=== PATIENT | female | born 1985 | race Caucasian/White ===

== ENCOUNTER 2019-08-22 15:04 | Outpatient (CLI) | payer MEDICAID, SELFPAY ==
--- NOTE | 2019-08-22 14:30 | DI.RAD_ITS ---
EXAM: XR KNEE LT 3V AP,LAT,SHELDON CLINICAL HISTORY: left knee pain. TECHNIQUE: 2D digital imaging was performed. COMPARISON: No exams were available for comparison FINDINGS: There are findings of a prior ACL repair. The articular surfaces are well maintained. The bones are normally mineralized and intact. The soft tissues are unremarkable. IMPRESSION: No acute abnormality. DATA REPOSITORY: RADIATION DOSE DELIVERED:
== END 2019-08-22 15:24 ==
PROVIDERS: PCP Nurse Practitioner; Referring Provider Nurse Practitioner; Visit Provider Physician Assistant Surgical
DX: M25.562 Pain in left knee (principal)
CPT/HCPCS: 73562

== ENCOUNTER 2019-08-25 01:18 | Outpatient (CLI) | payer MEDICAID, SELFPAY ==
--- NOTE | 2019-08-25 10:45 | DI.MRI_ITS ---
EXAM: MR LOWER JOINT LT WO CLINICAL HISTORY: LT KNEE PAIN, INTERNAL DERANGEMENT, M23.92. TECHNIQUE: Multiplanar multisequence MRI was performed. COMPARISON: No exams were available for comparison FINDINGS: MR examination the left knee was performed according to usual protocol. Cruciate ligaments: There is an ACL reconstruction in place. The reconstructed ligament appears inta ct. The posterior cruciate ligament appears normal. Patellofemoral joint and extensor mechanism: The articular cartilage of the patellofemoral joint show s minimal surface irregularity of the patellar and trochlear cartilage without significant cartilage thinning. Quadriceps and patellar tendons are unremarkable. Suprapatellar and infrapatellar fat pad s appear intact. Medial tibiofemoral joint: Slight cartilage thinning femoral and tibial articular cartilage noted. T here is a deficient peripherally displaced medial meniscus consistent with chronic tear or prior meni scectomy, please correlate with history. No significant medial collateral ligament injury. Lateral tibiofemoral joint. Slight cartilage surface irregularity of the tibial articular cartilage, fairly well preserved femoral articular cartilage. Unremarkable appearance of lateral meniscus and attachments. No significant collateral ligament injury. The posterolateral corner structures appear intact. Tendons: The tendon attachments in the region knee appear well. IMPRESSION: Intact reconstructed ACL. Deficient peripherally displaced medial meniscus, chronic tear versus prior meniscectomy. Slight degenerative changes as described above, most notable involving medial tibiofemoral joint. DATA REPOSITORY:
== END 2019-08-25 01:38 ==
PROVIDERS: PCP Nurse Practitioner; Visit Provider Student in an Organized Health Care Education/Training Program
DX: M25.562 Pain in left knee (principal); M23.92 Unspecified internal derangement of left knee; S83.242A Other tear of medial meniscus, current injury, left knee, initial encounter; M17.12 Unilateral primary osteoarthritis, left knee
CPT/HCPCS: 73721

== ENCOUNTER 2019-09-12 11:38 | Outpatient (CLI) | payer MEDICAID, SELFPAY ==
--- NOTE | 2019-09-12 10:30 | DI.RAD_ITS ---
EXAM: XR KNEE LT 1V CLINICAL HISTORY: left knee pain. TECHNIQUE: 2D digital imaging was performed. COMPARISON: CR XR KNEE LT 3V AP,LAT,SHELDON from 08/22/2019 FINDINGS: Single sunrise view is obtained. There is normal alignment of the patella. Soft tissues are unremar kable the bones are normally mineralized and appear intact. Orthopedic hardware is present consisten t with a prior ACL repair. IMPRESSION: No acute abnormality. DATA REPOSITORY: RADIATION DOSE DELIVERED:
== END 2019-09-12 11:58 ==
PROVIDERS: PCP Nurse Practitioner; Referring Provider Nurse Practitioner; Visit Provider Student in an Organized Health Care Education/Training Program
DX: M25.562 Pain in left knee (principal); Z98.890 Other specified postprocedural states
CPT/HCPCS: 73560

== ENCOUNTER 2019-09-14 01:25 | Outpatient (CLI) | payer MEDICAID, SELFPAY ==
[2019-09-14 12:50] LABS: Calculated LDL 94 mg/dL (<100); Cholesterol 201 mg/dL (<200); HDL Cholesterol 90 mg/dL (40-60); Triglyceride 88 mg/dL (<150); Vitamin B12 533 pg/mL (193-986)
== END 2019-09-14 01:45 ==
PROVIDERS: PCP Nurse Practitioner; Visit Provider Nurse Practitioner
DX: R20.0 Anesthesia of skin (principal); R20.2 Paresthesia of skin; Z13.1 Encounter for screening for diabetes mellitus; Z13.6 Encounter for screening for cardiovascular disorders
CPT/HCPCS: 36415; 80061; 82607; 83036

== ENCOUNTER 2019-09-25 08:36 | Emergency (ER) | payer MEDICAID, SELFPAY ==
[2019-09-25 08:40] VITALS: BP 128/65; PULSE 72; RESP 16; TEMP 37; O2SAT 98
--- NOTE | 2019-09-25 08:51 | W.ED.GENAD ---
Discharge Plan Disposition Patient Disposition: HOME Condition: Stable Discharge Details Chief Complaint: Laceration Clinical Impression: Avulsion of toenail of left foot Primary Care Provider: Dennise Núñez ED Provider: Leta Dorman Home Meds and New Rx's Prescriptions: No Action norgestimate-ethinyl estradiol [Sprintec (28)] 0.25-35 mg-mcg tablet 1 tab PO DAILY Qty: 84 RF: 3 naproxen 500 mg tablet 500 mg PO BID Qty: 30 RF: 0 methocarbamol 500 mg tablet 500 mg PO QID Qty: 30 RF: 1 Discharge Instructions Instructions: Nail Avulsion (ED) Additional Instructions: Follow up with primary care provider in 3-5 days. Return to ED sooner if any worsening or concerns. Increase oral fluids. Please take Tylenol or Ibuprofen with food every 4-6 hours as needed for pain and swelling. Keep wound clean and dry, allow to air dry daily. Keep covered with a bulky dressing if you are out and about to prevent re-injury or infection. Return for any signs of infection including increased redness, swelling, drainage or red streaks up your foot. Referrals: Dennise Núñez, HOME DEPOT REP [Primary Care Provider] - Medical Decision Making 34-year-old female presents to the ER with left second toe toenail avulsion. Patient states that last night she stubbed her toe on a curb and noticed that the toenail has been ripped off. On initial exam toenail is completely gone exposing the nailbed, patient has full range of motion noted to the toe. No obvious deformity swelling or indications of fracture. Prior to arrival patient placed antibiotic ointment on attempted to clean toe. Pain is mild on a scale. No other signs or symptoms no other complaints or injuries. Patient is up-to-date on her tetanus vaccination. At this time I do not feel that imaging is warranted, patient did bring her toenail and then requests as to placed back onto the nail bed. Since this is been approximately 12 to 16 hours at this time we will soak toe and sterile saline and Betadine, place a Xeroform and bulky dressing. Discussed home care and plan of care with patient, verbalized understanding. HPI General Mode of arrival: ambulatory. Date/Time Provider Initiated Documentation: 09/25/19 08:44. Limitations to Documentation: no limitations. Information obtained by: patient. HPI Narrative: 34-year-old female presents to the ER with left second toe toenail avulsion. Patient states that last night she stubbed her toe on a curb and noticed that the toenail has been ripped off. On initial exam toenail is completely gone exposing the nailbed, patient has full range of motion noted to the toe. No obvious deformity swelling or indications of fracture. Prior to arrival patient placed antibiotic ointment on attempted to clean toe. Pain is mild on a scale. No other signs or symptoms no other complaints or injuries. Patient is up-to-date on her tetanus vaccination. Related Data Home Medications Medication Instructions Recorded Confirmed norgestimate 0.25 mg-ethinyl 1 tab PO DAILY #84 tab 07/26/19 09/25/19 estradiol 35 mcg tablet methocarbamol 500 mg tablet 500 mg PO QID #30 tab 09/16/19 09/25/19 naproxen 500 mg tablet 500 mg PO BID #30 tab 09/16/19 09/25/19 Previous Rx's Medication Instructions Recorded norgestimate 0.25 mg-ethinyl 1 tab PO DAILY #84 tab 07/26/19 estradiol 35 mcg tablet methocarbamol 500 mg tablet 500 mg PO QID #30 tab 09/16/19 naproxen 500 mg tablet 500 mg PO BID #30 tab 09/16/19 Allergies Allergy/AdvReac Type Severity Reaction Status Date / Time No Known Allergies Allergy Verified 09/25/19 08:43 General Stated Complaint: Laceration IRMA: 4 Review of Systems Narrative: Constitutional: Negative for weight loss, alert and oriented, well groomed, normal body habitus, appears comfortable. Chest: Denies chest pain, palpitations, irregular rhythm, hypertension. Respiratory: Denies Shortness of breath, cough, hemoptysis. Musculoskeletal: Planing of left second toe pain and toenail avulsion. [facility] Medical History Condyloma acuminata (Acute) Contraception management (Acute) History of HPV infection (Acute) Surgical History History of surgical removal of meniscus of knee (Acute) Family History Mother Alcohol abuse Substance abuse Father Cancer testicular Diabetes Hyperlipidemia Substance abuse Sister No problems noted. Sister Alcohol abuse Substance abuse Social History Smoking/Tobacco Use Status: Never Alcohol Intake: current Alcohol Intake frequency: 0-2 drinks per day Alcohol type: beer Drug use: Occasionally Substance use type: marijuana Caregiver/Support person: No Household members: none Housing: house Communication Needs: None Do you need help understanding health information?: Never Pets and animals: Yes Pets and animals: dog(s) Sexually active: No Current gender identity: female What is your relationship status?: never How often do you talk on the phone with friends or family?: twice per week How often do you get together with friends or relatives?: three or more times per week How often do you attend nondenominational or rastafarian services?: 1-3 times per year Do you belong to any clubs or organized social groups?: yes Panel score (0-1 are the most socially isolated patients): 2 What type of physical activity do you participate in: bicycling and other Details: skiing Duration: 30-45 minutes/day Frequency: 1-2 times per week Chante/Bahai: none Special chante needs: No Seatbelt use: always Helmet use: Yes Helmet use: always Drive intox or ride w/intox tour bus driver/guide: No Do you feel safe at home: Yes Do you feel safe in your relationship?: Yes Exam Narrative Exam Narrative: Constitutional: Alert and oriented x3. Appears stated age. Normal body habitus. Head: Normocephalic, no trauma. Chest: RRR, Normal S1, S2, distal pulses intact. Resp: Lungs clear to auscultation bilaterally, no wheezes, rales, or rhonchi. Musculoskeletal: Normal gait, 5/5 strength to all four extremities. Left second toe has a toenail avulsion, nail bed is exposed bleeding is controlled. No obvious deformity or swelling noted to the toe. Cap refill less than 2 seconds. Distal circulation sensation and movement is intact. Neurologic: Cranial nerves II-XII intact. Alert and oriented x 3. DTR's intact. Hematologic/Lymphatic: No ecchymosis, no lymphadenopathy. Course Vital Signs Vital signs: Vital Signs Temperature 37.0 C 09/25/19 08:40 Pulse 72 07/26/20 08:40 Respiratory Rate 16 09/25/19 08:40 Blood Pressure 128/65 09/25/19 08:40 Pulse Oximetry 98 09/25/19 08:40 Temperature 37.0 C 09/25/19 08:40 Temperature Source Tympanic 09/25/19 08:40 Pulse 72 09/25/19 08:40 Respiratory Rate 16 09/25/19 08:40 Respiratory Effort Non-Labored 09/25/19 08:42 Blood Pressure 128/65 09/25/19 08:40 Blood Pressure Position Sitting 09/25/19 08:40 Pulse Oximetry 98 09/25/19 08:40 Oxygen Delivery Method Room Air 09/25/19 08:40 Oxygen Flow Rate 0 09/25/19 08:40 Pain Level 2 09/25/19 08:40
== END 2019-09-25 09:22 | disposition home or self-care (01) ==
PROVIDERS: Emergency Provider Registered Nurse Emergency; PCP Nurse Practitioner
DX: S91.215A Laceration without foreign body of left lesser toe(s) with damage to nail, initial encounter (principal); W22.09XA Striking against other stationary object, initial encounter
CPT/HCPCS: 99282; 99283

== ENCOUNTER 2019-12-27 10:24 | Outpatient (REF) | payer MEDICAID, SELFPAY ==
--- NOTE | 2019-12-27 09:50 | PAPFT_PTH ---
PATIENT: Claire Eubanks LOC: [facility] U#:[id number] AGE/SX: 34/F ROOM: RE12/27/[address]: Gudelia Fonseca NP : 1985 BED: DIS: 12/27/2019 SPEC #: [id number] RECD: 12/27/19 12:57 STATUS: CASA ISABEL #: [id number] DOMONIQUE: 12/27/19 09:[address]: Gudelia Fonseca NP DEPT: [facility] Cytology RECD BY: Maricel Bell ENTERED: 12/27/19 12:58 SP TYPE: PAPFT OTHR DR: Dennise Núñez, PhD [employer] Tissues: 1 - CX/ENDOCX FOR PAP SMEARS Procedures: PAP THIN PREP/UVM Screening HPV DNA PROBE Comments: [id number] ([place]) ([place]DIA/GC)
[2020-01-18 16:26] LABS: Chlamydia Result Negative (Negative); GC Result Negative (Negative)
== END 2019-12-27 10:44 ==
LOC: LBN 10:24
PROVIDERS: PCP Nurse Practitioner; Visit Provider Nurse Practitioner Women's Health
DX: Z12.4 Encounter for screening for malignant neoplasm of cervix (principal); Z11.3 Encounter for screening for infections with a predominantly sexual mode of transmission; Z11.51 Encounter for screening for human papillomavirus (HPV); R87.610 Atypical squamous cells of undetermined significance on cytologic smear of cervix (ASC-US)
CPT/HCPCS: 87491; 87591; 88142; 87624

== ENCOUNTER 2020-01-10 07:42 | Outpatient (CLI) | payer MEDICAID, SELFPAY ==
[2020-01-11 12:33] LABS: SARS-CoV-2 RNA Not Detected (NotDetected); SARS-CoV-2 RNA Source Nasal/Nares
== END 2020-01-10 08:02 ==
PROVIDERS: PCP Nurse Practitioner; Visit Provider Student in an Organized Health Care Education/Training Program
DX: Z01.818 Encounter for other preprocedural examination (principal); M94.262 Chondromalacia, left knee
CPT/HCPCS: U0003

== ENCOUNTER 2020-01-30 02:40 | Outpatient (CLI) | payer MEDICAID, SELFPAY ==
[2020-01-31 16:51] LABS: COVID-19 RT-PCR UVMMC Result Negative (Negative)
== END 2020-01-30 03:00 ==
PROVIDERS: PCP Nurse Practitioner; Visit Provider Student in an Organized Health Care Education/Training Program
DX: Z11.59 Encounter for screening for other viral diseases (principal); Z01.818 Encounter for other preprocedural examination
CPT/HCPCS: U0003

== ENCOUNTER 2020-02-03 10:08 | Day surgery (SDC) | payer MEDICAID, SELFPAY ==
[2020-02-03 10:32] VITALS: BP 135/70; PULSE 53; RESP 16; TEMP 36.3; O2SAT 100
[2020-02-03] MEDS: Lactated Ringers 1,000 ML 100 ML IV (11:03)
[2020-02-03] MEDS: Bupivacaine 0.25% Pres-Free 30 ML VIAL (12:40)
[2020-02-03] MEDS: EPINEPHrine 1 MG/ML AMP pres-free (12:41)
--- NOTE | 2020-02-03 13:28 | PDOC.DSDIS_ITS ---
Discharge Plan Disposition Patient Disposition: HOME Condition: Stable Discharge Details Reason For Visit: Left knee diagnostic arthroscopy Attending Provider: Golden Chilel Primary Care Provider: Dennise Núñez Home Meds and New Rx's Prescriptions: New aspirin 81 mg tablet,delayed release (DR/EC) 81 mg PO DAILY 14 Days Qty: 14 RF: 0 naproxen 250 mg tablet 250 - 500 mg PO BID PRN (Reason: Moderate pain or swelling) Qty: 60 RF: 0 tramadol 50 mg Tablet 50 mg PO Q8H PRN PRN (Reason: severe pain) Qty: 5 RF: 0 Discontinued naproxen 500 mg tablet 500 mg PO BID Qty: 30 RF: 0 methocarbamol 500 mg tablet 500 mg PO QID Qty: 30 RF: 1 Discharge Instructions Additional Instructions: Surgery: Left knee diagnostic arthroscopy with minimal partial medial meniscectomy, small lateral tibial plateau chondroplasty, and limited s ynovectomy Activity: Advance to weightbearing as tolerated. Progress to full range of motion over the next few days. Avoid high-impact activities until completely comfortable. A physical therapy prescription will be provided separately in the office at follow-up if needed. Prescriptions: Aspirin 81 mg take 1 daily to prevent a blood clot for 2 weeks Naproxen 250 mg take 1-2 every 12 hours with a meal as needed for moderate pain Tramadol 50 mg take 1 every 8 hours as needed for severe pain You may use foop-nui-oneddph Tylenol (acetaminophen) as needed for mild pain. These pain medications may be taken all at once or in different combinations as needed. Also, recommend Colace (docusate) as a stool softener as surgery and pain medicine cause constipation. Dressings: Leave dressing in place for 2-3 days. May adjust, loosen, or rewrap Enrrique wraps as needed. After dressing removal, leave open to air or cover incisions with Band-Aids. May shower after 5 days. Follow-up: 10-[address] Chilel Let us know right away if you develop any redness, drainage, fevers, chest pain, or trouble breathing. Do not drink alcohol or drive for at least 24 hours after anesthesia. Please call the office during business hours with any questions or concerns. 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
--- NOTE | 2020-02-03 13:42 | ROE_ITS ---
Date of service: 02/03/20 Time of Service: 13:29 Operative Note Operative Note DATE OF PROCEDURE: 02/03/20 PRE-OP DIAGNOSIS: 1. Left knee medial meniscus deficiency 2. Status post ACL reconstruction 3. Chondromalacia 4. Synovitis POST-OP DIAGNOSIS: same 1. Left knee medial meniscus deficiency and minimal fraying/tearing of the body: Status post nearly total medial meniscectomy 2. Status post ACL reconstruction: Intact although mildly lax and diminutive 3. Chondromalacia: No significant cartilage defect medial compartment. Mild grade 1-2 change patellofemoral compartment, minimal grade 1 changes medial tibial plateau, and 3 x 5 mm fraying loose edge cartilage flap just lateral to lateral tibial spine on lateral tibial plateau 4. Synovitis: Minimal anterior fat pad synovitis. Small lateral gutter plica. PROCEDURE: 1. Left knee diagnostic arthroscopy for potential staged medial meniscal allograft transplant 2. Limited synovectomy of lateral plical band 3. Minimal partial medial meniscectomy of very limited fraying at the medial meniscus body 4. Chondroplasty of the small lateral tibial plateau cartilage lesion SURGEON: Golden Chilel TAPE RECORDING MACHINE OPERATOR: Daryl Raygoza ANESTHESIA: local and spinal ESTIMATED BLOOD LOSS: 3 PATHOLOGY: none sent TOURNIQUET TIME: 0 COMPLICATIONS: None Patient was transported to: same day Patient's condition: stable Implants: None Indications: Please see complete medical record for details. Findings: Largely intact medial compartment articular cartilage status post prior near?total medial meniscectomy. Intact ACL arthroscopically and negative Marilyn and negative pivot shift under exam under anesthesia. Procedure Description: In the operating room, spinal anesthesia was induced. The patient was positioned supine on the operating room table. All bony prominences were well-padded. Preoperative antibiotics were administered. The left knee was prepped and draped in the usual sterile fashion. The correct patient, procedure, and side of the procedure were all verified prior to incision. With the patient awake and observing, a complete diagnostic arthroscopy was performed. The patient's prior anteromedial anterolateral portals were preinjected with 10 cc of 0.25% bupivacaine containing epinephrine and then utilized reopening the skin sharply and then bluntly into the joint. Significant relevant findings documented above and discussed with the patient. There was a very minimal amount of medial meniscus remnant still present. The medial compartment cartilage surfaces were remarkably intact throughout except for the medialmost aspect of the distal medial femoral condyle with a grade 1 to 5 x 8 lesion. There is a mild amount of erythema and fraying of the medial meniscus body that is easily removed with a shaver. Minimal anterior fat pad was present and did not appear pathologic. There was a small plical band lateral gutter that was also easily removed with a shaver after switching viewing and working portals. The lateral compartment showed intact lateral meniscus. There was a small frayed nearly free edge flap of cartilage just lateral to lateral tibial plateau that was treated with a shaver to stable cartilage border performing a limited chondroplasty. ACL was inspected in flexion and extension and although diminutive and possibly slightly lax intact throughout its course from the lateral femoral condyle in the proximal tibia. Under direct visualization a spinal needle was inserted anterolaterally into the suprapatellar pouch. The knee was flushed with the irrigation pump and then drained of all arthroscopic fluid. The anteromedial anterolateral portals were closed with 3-0 Monocryl in a buried fashion. Postoperative pain injection containing 20 cc of 0.25% bupivacaine containing epinephrine and 4 mg of morphine was injected into the knee joint. Mastisol followed by Steri-Strips Xeroform and dry 4 x 4 gauze applied over the anterior knee. The patient was awake and tolerated the procedure under spinal without complication and was transferred back to day surgery in a stable condition.
[2020-02-03 13:48] VITALS: BP 107/66; PULSE 53; RESP 16; TEMP 36.2; O2SAT 98
== END 2020-02-03 14:50 | disposition home or self-care (01) ==
PROVIDERS: PCP Nurse Practitioner; Visit Provider Student in an Organized Health Care Education/Training Program
PROC: (CPT 29870; principal; 2020-02-03 11:00)
DX: M23.332 Other meniscus derangements, other medial meniscus, left knee (principal); M94.262 Chondromalacia, left knee; M65.862 Other synovitis and tenosynovitis, left lower leg; M67.52 Plica syndrome, left knee; Z98.890 Other specified postprocedural states; M23.8X2 Other internal derangements of left knee; X58.XXXS Exposure to other specified factors, sequela
CPT/HCPCS: 29881; E0114; J0171; J1100; J1885; J2001; J2250; J2405

== ENCOUNTER 2020-02-15 02:23 | Outpatient (RCR) | payer MEDICAID, SELFPAY ==
--- NOTE | 2020-02-15 15:00 | HOLTER_ITS ---
APPROVED REPORT Exam Type: HOLTER MONITOR APPLICATION Reason for Test: ireeg heartbeat, bradycardia Patient Location: O Conclusion This is a 48-hour Holter monitor ordered for indication of bradycardia. ???The patient was in normal sinus rhythm for the majority of the recording with an average heart rat e of 81 bpm. ???There was one episode of supraventricular tachycardia lasting 10 beats. ???There were 2 brief episodes of ventricular tachycardia with the longest lasting 4 beats. ???There were occasional (4%) PVCs. ???There were no episodes of atrial fibrillation, no pauses greater than 3 seconds and no evidence of high degree heart block. ???Single patient diary event was associated with PVCs.
== END 2020-03-01 23:59 | disposition home or self-care (01) ==
LOC: RT 02:23
PROVIDERS: PCP Nurse Practitioner; Visit Provider Nurse Practitioner
DX: I49.8 Other specified cardiac arrhythmias (principal); R00.1 Bradycardia, unspecified; I47.1 Supraventricular tachycardia; I49.3 Ventricular premature depolarization
CPT/HCPCS: 93225; 93226

== ENCOUNTER 2020-02-15 15:40 | Outpatient (CLI) | payer MEDICAID, SELFPAY ==
--- NOTE | 2020-02-15 15:15 | DI.RAD_ITS ---
EXAM: XR KNEE LT 2V AP,LAT CLINICAL HISTORY: F/u. TECHNIQUE: 2D digital imaging was performed. COMPARISON: CR XR KNEE LT 1V from 09/12/2019 FINDINGS: There has been ACL surgery. There is no evidence of fracture. No obvious degenerative changes. The re is a joint effusion noted. An no osteophytes. No osseous lesions. Small benign bone island is n oted in the intercondylar region. No lytic osseous lesions. No radiographic evidence of osteomyelit is. Signature IMPRESSION: DATA REPOSITORY: RADIATION DOSE DELIVERED:
== END 2020-02-15 16:00 ==
PROVIDERS: PCP Nurse Practitioner; Referring Provider Nurse Practitioner; Visit Provider Student in an Organized Health Care Education/Training Program
DX: Z98.890 Other specified postprocedural states (principal)
CPT/HCPCS: 73560

== ENCOUNTER 2020-02-21 14:19 | Outpatient (REF) | payer MEDICAID, SELFPAY ==
--- NOTE | 2020-02-21 13:15 | CER_PTH ---
PATIENT: Claire Eubanks LOC: [facility] U#:[id number] AGE/SX: 34/F ROOM: RE02/21/[address]: Ana Willams DO : 1985 BED: DIS: 02/21/2020 SPEC #: [id number] RECD: 02/21/20 17:20 STATUS: CASA REQ #: [id number] DOMONIQUE: 02/21/20 13:[address]: Ana Willams DEPT: Surgical Specimen RECD BY: Maricel Bell ENTERED: 02/21/20 17:21 SP TYPE: CER OTHR DR: Dennise Núñez, PhD [employer]MENT [employer]ER Tissues: 1 - CERVICAL BIOPSY 2 - ENDOCERVICAL BX/CURRETTE Procedures: GROSS AND MICRO LEVEL 4 Comments: [id number]
== END 2020-02-21 14:39 ==
LOC: LBN 14:19
PROVIDERS: PCP Nurse Practitioner; Visit Provider Obstetrics & Gynecology
DX: N72 Inflammatory disease of cervix uteri (principal); N88.8 Other specified noninflammatory disorders of cervix uteri; R87.610 Atypical squamous cells of undetermined significance on cytologic smear of cervix (ASC-US)
CPT/HCPCS: 88305

== ENCOUNTER 2020-03-26 04:36 | Outpatient (CLI) | payer MEDICAID, SELFPAY ==
[2020-03-27 14:35] LABS: COVID-19 RT-PCR UVMMC Result Negative (Negative)
== END 2020-03-26 04:56 ==
PROVIDERS: PCP Nurse Practitioner; Visit Provider Family Medicine
DX: Z11.52 Encounter for screening for COVID-19 (principal)
CPT/HCPCS: U0003

== ENCOUNTER 2020-03-29 01:06 | Outpatient (CLI) | payer MEDICAID, SELFPAY ==
--- NOTE | 2020-03-29 08:00 | ETT_ITS ---
APPROVED REPORT Exam: Exercise Treadmill Patient Location: Out-Patient Room/Bed: Stress Nurse: Citlaly Hinson RN Ordering Provider:HE MILTON, Contact Number: [phone] BMI: 22.14 Baseline Rhythm: Sinus Rhythm Comment: bigeminy, trigeminy Indications: bradycardia Medical History Medical History: bradycardia, PVCs Cardiac Medications: None Allergies: Penicillin Cardiac Risk Factors: Family hx Previous Cardiac Procedures: None Pretest Chest Pain Characteristics: None Exercise History: Physically active Physical Disabilities: None Lung Sounds: Clear to auscultation Heart Sounds: Regular Stress Test Details Test: Exercise stress testing was performed using a Luke protocol. Rest Stress HR Resting HR Supine: 90 bpm Max Heart Rate (APMHR): 184 bpm Resting HR Standin bpm Target HR (85% APMHR): 156 bpm Max HR Achieved: 190 bpm % of APMHR: 103 Recovery HR: 98 bpm HR response to stress: Normal HR response to stress BP Resting BP Supine: 116/70 mmHg Resting BP Standin/74 mmHg Max BP: 156/62 mmHg Recovery BP: 120/68 mmHg BP response to stress: Normal blood pressure response to stress. ECG Resting ECG: Sinus Rhythm Ectopy: bigeminy, trigeminy Stress ECG: Sinus Tachycardia ST Change: No significant ST segment changes noted Arrhythmia: episodes of frequent PVCs, bigeminy, trigeminy, couplet Recovery ECG: Sinus Rhythm Recovery ST Change: No significant ST segment changes noted Recovery Arrhythmia: frequent PVCs, bigeminy, couplet Clinical Reason for Termination: Fatigue Stress Symptoms: General Fatigue Exercise duration: 16 min36 sec Highest Stage Reached: Stage 6: 5.5 mph at 20% grade. Exercise capacity: 16.55 METs Mercedes Treadmill Score: 14 Rate Pressure Product: 39082 Stress ECG Conclusion 1. The patient exercised for 17 minutes (17 METS). Exercise was stopped due to fatigue. 2. The patient had frequent PVCs at baseline as well as during exercise and through recovery. The PV Cs appear monomorphic in nature. 3. There were no ST changes suggestive of ischemia. 4. The Mercedes Score (14) estimates an annual cardiovascular mortality of 0% and a five year survival of 96%. Using the Mercedes Score there is a low probability of any angiographic coronary disease. Mercedes Treadmill Score is 14 which is Low risk. Stress Test Summary STAGE Time (mins) Speed (mph) Grade (%) HR BP SYMPTOMS METS Supine 90 116/70 Standing 81 118/74 1 3 1.7 10 102 120/70 4.6 2 6 2.5 12 110 126/68 7 3 9 3.4 14 132 130/70 10.2 4 12 4.2 16 150 12.9 5 15 5.0 18 169 17.2 1 min recovery 118 156/62 3 min recovery 104 144/66 6 min recovery 98 120/68 stage 6 185
--- NOTE | 2020-03-29 08:33 | DI.US_ITS ---
APPROVED REPORT EXAM: Comprehensive 2D, Doppler, and color-flow Echocardiogram Patient Location: Out-Patient Ekg Monitor Tech: Sanaz Berkowitz RDCS (AE) Indications: Bradycardia Other Information Study Quality: Adequate Conclusion Left Ventricle : The left ventricle is normal size. The left ventricular systolic function is normal. The left ventricular ejection fraction is within the normal range. There is normal left ventricular wall thickness. There is normal LV segmental wall motion. The left ventricular diastolic function is normal. LVEF is 60% with some xtby-xo-dafe variability given high number of PVCs. Right Ventricle : The right ventricle is normal size. The right ventricular systolic function is norm al. The RVSP is 20.9mmHg. Atria : The left atrium size is normal. The right atrium size is normal. Valves: There are no hemodynamically significant valvular lesions. Great Vessels : The aortic root is normal in size. The ascending aorta is normal in size. Aortic arch is normal in caliber. IVC is normal in size and collapses >50% with inspiration. Please see remainder of study for further details. Wall motion Left Ventricle The left ventricle is normal size. The left ventricular systolic function is normal. The left ventric ular ejection fraction is within the normal range. There is normal left ventricular wall thickness. T here is normal LV segmental wall motion. The left ventricular diastolic function is normal. There is no ventricular septal defect visualized. LVEF is 60% with some jzqf-tp-ojfn variability given high nu mber of PVCs. Right Ventricle The right ventricle is normal size. The right ventricular systolic function is normal. The RVSP is 20 .9mmHg. Atria The left atrium size is normal. The right atrium size is normal. The interatrial septum is intact wit h no evidence for an atrial septal defect. Aortic Valve The aortic valve is normal in structure. Aortic valve is trileaflet. There is no aortic valvular sten osis. No aortic regurgitation is present. Mitral Valve The mitral valve is normal in structure. No evidence of mitral valve stenosis. Trace mitral regurgita tion. Tricuspid Valve The tricuspid valve is normal in structure. There is no tricuspid valve stenosis. Trace tricuspid reg urgitation. Pulmonic Valve The pulmonary valve is normal in structure. There is no pulmonic valvular stenosis. Trace pulmonic re gurgitation. Great Vessels The aortic root is normal in size. The ascending aorta is normal in size. Aortic arch is normal in ca liber. IVC is normal in size and collapses >50% with inspiration. Pericardium There is no pericardial effusion. 2D Dimensions IVSD d PLAX 0.94 cm F: 0.6-1.0 LV Vol A2C d MOD 126.8 mL LVPW d PLAX 0.90 cm F: 0.6 - 1.0 LV Vol A4C d MOD 128.0 mL LVID d PLAX 4.65 cm F: 3.8 - 5.2 LA vol/ BSA A2C s A-L 30.5 mL/m2 LVDs 3.10 cm F: 2.2 - 3.5 LA vol/ BSA A4C s A-L 28.2 mL/m2 Ao Root d 2.84 cm F: 2.7 - 3.3 LA Vol/ BSA Biplane s A-L 30.1 mL/m2 RA Area A4C 13.58 cm2 LA Area A4C s MOD 18.36 cm2 RA Vol/ BSA A4C s A-L 19.9 mL/m2 LA Area A2C s MOD 18.56 cm2 Ao Asc Diam d 3.04 cm F: 2.3 - 3.1 LV EF A4C MOD 62.9 % LV EF Teichholz 61.9 % LV EF A2C MOD 58.0 % LVEF (Breaux's) 60.20 % F: 54 - 74 LV EF Biplane MOD 60.2 % LV Volume 100.28 mL F: 46 - 106 SV 78.03 mL LV Volume Index 55.09 mL/m2 F: 29 - 61 SV Index 42.69 mL/m2 LV Vol Biplane MOD 129.6 mL FS 33.20 % M-Mode TAPSE 2.86 cm (M/F) >1.7 LV Diastology MV E' medial 0.132 (>0.07 m/s) E/A Ratio 1.2 LV E/e MED 5.05 (<14) MV E Vmax 0.67 (0.4-1.3 m/s) MV E' lateral 0.176 (>0.1 m/s) MV A Vmax 0.55 (0.4-1.3 m/s) LV E/e LAT 3.80 (<14) MV E/A Ratio 1.20 MV E/E' medial 5.08 MV E/E' lateral 3.81 Aortic Valve LVOT Area 3.01 cm2 AoV Area Vmax 2.61 cm2 LVOT Vmax 1.24 m/s AoV Area/ BSA (Vmax) 1.43 cm2/m2 LVOT Mean Otto. 0.86 m/s FAWN Mean Otto. 2.36 cm2 LVOT Peak Grad 6.2 mmHg FAWN Mean Otto. Index 1.29 cm2/m2 LVOT Mean Grad 3.3 mmHg LVOT VTI 0.292 m LVOT Diam s 1.95 cm AoV Vmax 1.43 m/s Velocity Ratio 0.86 AoV Mean Otto. 1.10 m/s AoV Peak Grad 8.2 mmHg LVOT SV 87.80 mL AoV Mean Grad 5.1 mmHg AoV VTI 0.327 m AoV Area VTI 2.68 cm2 AoV Area/ BSA (VTI) 1.47 cm/m2 Mitral Valve MV DT 226 (160-240 msec) MV PHT 66 msec MV Area PHT 3.36 cm2 Pulmonary Valve PV Vmax 0.86 (0.5-1.5 m/s) RVOT Peak Gr. 2.36 mmHg PV Peak Grad 2.9 mmHg RVOT Mean Gr. 1.40 mmHg PV Mean Grad 1.9 mmHg RVOT VTI 0.179 m PV VTI 0.205 m RVOT Vmax 0.77 m/s Tricuspid Valve TR Peak Grad 17.8 mmHg TR Vmax 2.11 m/s RA Pressure 3.00 mmHg RVSP (TR) 20.9 mmHg
== END 2020-03-29 01:26 ==
PROVIDERS: PCP Nurse Practitioner; Visit Provider Internal Medicine Cardiovascular Disease
DX: R00.1 Bradycardia, unspecified (principal); Z82.49 Family history of ischemic heart disease and other diseases of the circulatory system
CPT/HCPCS: 93017; 93306

== ENCOUNTER 2020-04-02 03:54 | Outpatient (CLI) | payer MEDICAID, SELFPAY ==
[2020-04-03 12:34] LABS: COVID-19 RT-PCR UVMMC Result Negative (Negative)
== END 2020-04-02 04:14 ==
PROVIDERS: PCP Nurse Practitioner; Visit Provider Student in an Organized Health Care Education/Training Program
DX: Z11.52 Encounter for screening for COVID-19 (principal); Z01.818 Encounter for other preprocedural examination
CPT/HCPCS: U0003

== ENCOUNTER 2020-04-05 06:20 | Day surgery (SDC) | payer MEDICAID, SELFPAY ==
[2020-04-05] VITALS (8 sets, daily range): BP systolic 93–118; BP diastolic 47–69; PULSE 55–77; RESP 12–17; TEMP 36.4–36.8; O2SAT 97–100
[2020-04-05] MEDS: Lactated Ringers 1,000 ML 100 ML IV ×2 (07:08→15:01)
[2020-04-05] MEDS: Bupivacaine 0.25% Pres-Free 10 ML VIAL (08:03)
[2020-04-05] MEDS: Bupivacaine 0.25% Pres-Free 30 ML VIAL ×2 (09:15→10:51)
[2020-04-05] MEDS: ceFAZolin 2 GM/50 ML BAG IVPB (09:37)
[2020-04-05] MEDS: Bupivacaine LIPOSOME/PF 133 MG/10 ML VIAL IJ (10:49)
[2020-04-05] MEDS: EPINEPHrine 30 MG/30 ML VIAL (10:50)
[2020-04-05] MEDS: EPINEPHrine 1 MG/ML AMP pres-free (10:50)
--- NOTE | 2020-04-05 16:01 | W.PM.DSUDISC ---
Discharge Plan Disposition Patient Disposition: HOME Condition: Stable Discharge Details Reason For Visit: Left knee meniscus transplant Attending Provider: Golden Chilel Primary Care Provider: Dennise Núñez Home Meds and New Rx's Prescriptions: New aspirin 81 mg tablet,delayed release (DR/EC) 81 mg PO DAILY 30 Days Qty: 30 RF: 0 naproxen 250 mg tablet 250 - 500 mg PO BID PRN (Reason: Moderate pain or swelling) Qty: 60 RF: 0 oxycodone 5 mg tablet 5 - 10 mg PO Q4H PRN (Reason: moderate to severe pain) Qty: 22 RF: 0 Continued verapamil 180 mg capsule,ext rel. pellets 24 hr 180 mg PO DAILY Qty: 90 RF: 3 naproxen 250 mg tablet 250 - 500 mg PO BID PRN (Reason: Moderate pain or swelling) Qty: 60 RF: 0 acetaminophen [Tylenol] 325 mg Tablet 650 mg PO ONCE PRNRF: 0 Discharge Instructions Additional Instructions: Surgery: Left knee arthroscopy with medial meniscal allograft transplant Activity: Touch weightbearing with crutches for 2 months. Non-weightbearing only knee range of motion limited 0 to 90 degrees for 2 months. After 06/03/2020, progress to weightbearing as tolerated and full range of motion. Avoid weighted flexion past 90 degrees for 3 months. After 07/03/2020, start closed chain strengthening, bicycle okay. No running/jogging, twisting/cutting/pivoting for 6 months. Sports around 8 months. A physical therapy prescription will be sent electronically to start in about 3 weeks. Prescriptions: Aspirin 81 mg take 1 daily to prevent a blood clot for 30 days Naproxen 250 mg take 1-2 every 12 hours with a meal as needed for moderate pain Oxycodone 5 mg take 1-2 every 4-6 hours as needed for severe pain You may use [id number]-[id number] Tylenol (acetaminophen) as needed for mild pain. These pain medications may be taken all at once or in different combinations as needed. Also, recommend Colace (docusate) as a stool softener as surgery and pain medicine cause constipation. Dressings: Leave dressing in place for 5-7 days. May then remove and leave open to air or cover incisions with Band-Aids. Do not shower until after follow-up. Follow-up: 10-[address] Chilel Let us know right away if you develop any redness, drainage, fevers, chest pain, or trouble breathing. Do not drink alcohol or drive for at least 24 hours after anesthesia. Please call the office during business hours with any questions or concerns. Referrals: Golden Chilel MD [ [facility] STAFF PHYSICIAN] - Discharge Orders Discharge Orders: Discharge Order (Routine); Ordered 04/05/20 Ordered By: Golden Chilel DS: Diagnosis Discharge Diagnosis (1) Derangement of medial meniscus of left knee due to old injury: Status: Acute (2) Chondromalacia, left knee: Status: Acute
--- NOTE | 2020-04-05 16:09 | W.PM.OP ---
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 Donor age 40, male. Prepared to 9 mm diameter x 10 mm anterior posterior horn bone plugs 2-hole cortical button for anterior horn, 4-hole cortical shirt button for posterior horn tibial fixation with SutureTape FiberLoop 4x SutureTape pre-loaded vertical mattress sutures posterior horn 4x horizontal mattress inside?out suture tape repair sutures meniscal body and anterior horn Indications: Please see complete medical record for details. Procedure Description: In the operating room, a provisional timeout was conducted. Prior to the patient entering the room, the graft was prepared. Using a micro sagittal saw the anterior and posterior horns were released from the hemiplateau provisionally shaped 10 x 10 mm. Rongeur was then used to round each bone block to about 9 mm diameter. 0.062 inch K wire was then used to create a path for a suture tape fiber loop that was used to secure the anterior and posterior horns through their respective bone blocks. 5 suture tape preloaded repair stitches were inserted about 3 mm apart in a vertical mattress fashion in the posterior horn and stopping at the junction of the posterior horn and meniscal body. The capsular side of this is graft was marked with a marking pen, which was also used to place dots on the superior leaflet representing each preloaded repair stitch. The graft was then protected on the back table covered in vancomycin soaked Ray-Carlos's and a blue towel for later transplant. Patient received regional anesthesia nerve blocks, and sciatic while the graft was being prepped. Next, the patient was brought into the operating room and general anesthesia was induced. The patient was positioned supine on the operating room table. All bony prominences were well-padded. And cefazolin preoperative antibiotics were administered. The knee was prepped and draped in the usual sterile fashion the additional use of the Spider. The correct patient, procedure, and side of the procedure were all verified prior to incision. The planned anteromedial, anterolateral, medial inside-out repair, and anteromedial tibial incision were preinjected with 30 cc containing 10 cc of Exparel and 30 cc of 0.25 bupivacaine and epinephrine. The patient's prior anterolateral and anteromedial portals were used to obtain access to the knee joint. A diagnostic knee arthroscopy had previously been performed. Attention was focused on the medial compartment. An 18-gauge spinal needle was used to piecrust the MCL as well as extensively trephinate the medial meniscus capsular remnant from anterior to posterior. The remnant was trimmed more anteriorly using a curved shaver. The curved shaver was then also used to perform a minimal reverse notchplasty and resection of synovitis between the planned posterior horn socket and the PCL. Arthrex posterior root repair guide was appropriately placed and predrilled for flip cutter 3 used the anteromedial tibial with a vertical incision and clear down to bone with a ashford elevator. The position was slightly anterior and medial so when the flip cutter was inserted it was directed more posteriorly and lateral and ended up with a very anatomic position. The guide was released and removed the knee. The sleeve was tapped into the anterior tibial cortex. A flip cutter was then deployed to 9 mm diameter and the grommet used to set depth at 10 mm. Under direct visualization the flip cutter was then used in retrograde fashion to remove his socket. It was then withdrawn, and a #2 FiberWire was inserted with a fiber stick and brought out the anterior medial portal and secured over the anterior tibia. The arthroscopic instruments were then brought out of the knee temporarily. The knee was brought to 90 degrees of flexion. The previously marked posterior medial inside-out repair incision had been confirmed by palpated the joint line and with the MCL and meniscus root trephination. Anterior approach was taken about 1/3 proximal to the joint line 2/3 below. The saphenous nerve or a branch was identified crossing proximally and retracted and protected. Sartorial fascia was identified and then sharply released in line with its fibers. Blunt digital dissection confirmed the posterior medial joint line and with gentle elevation release the medial head of the gastrocnemius creating space for the posterior inside out repair retractor, which was inserted. The anteromedial portal was lengthened distally to accommodate a 12 x 3 mm passport cannula that was inserted over the posterior horn passing FiberWire suture. The arthroscope was brought back into the knee viewing from laterally and with valgus and moderate extension the posterior horn meniscal remnant was visualized and debrided with the shaver. Using a 90 degree suture lasso the posterior meniscal remnant and capsule was trephinated and a outside in fashion and also used to pass individual suture tape fiber link sutures for the planned meniscal preloaded fixation. There was only appropriate space for for repair stitches so the most adjacent suture tape to the root was removed from the graft, which was brought over to the knee. The passport cannula was used to sequentially pass from the posterior horn working medially and anterior each preloaded suture taking care to ensure there was no crossing of sutures. Numbered snaps were used to maintain the appropriate order. The sutures were confirmed to not be twisted and the passport cannula was incised and removed. The graft was eased into the knee through the anteromedial portal under direct visualization and a Krak?w used to direct the posterior horn bone plug to its socket, which was delivered into the socket and provisionally secured over the anteromedial tibia with a snap. The crab cawll was then used to reduce the meniscus under the medial femoral condyle while tensioning from posterio to anterior each preloaded repair suture. Was taken again to ensure there was no suture crisscross. Each suture pair was tensioned again ensuring there was no iatrogenic meniscal extrusion. The posterior horn was inspected with a probe and found to be appropriate.for the socket. The sutures were tied over a 4-hole cortical button on the anteromedial tibia under direct visualization with appropriate tension. The preloaded repair sutures were then secured over the posterior medial capsule with the knee in full extension joint joining numbers 2 and 3 and 3 and 4 as #1 had been removed. Repair of the posterior horn and meniscal root was probed and inspected and felt to be appropriate. The ear horn sutures were then brought out the anterior medial incision crest just above the anterior tibial plateau at the planned anterior horn repair site. The crab claw was used to reduce the meniscal body to the appropriate location near the capsule. FiberWire was then passed in an outside in fashion about the anterior meniscal body to provisionally maintained reduction of the meniscal body and anterior horn. The Arthrex zone navigator was then used with the knee in moderate flexion to pass 4 horizontal mattress repair sutures in an inside-out fashion which were then secured to the capsule. The posterior horn, root, meniscal body and anterior horn were all inspected and probed for range of motion found to the securely fixated and in appropriate position not requiring further repair. The knee was drained of arthroscopic fluid. The anterior portal was extended distally exposing the anterior horn bone plug and repair site. A low profile acorn reamer used to drill a 9 x 10 mm socket in the appropriate trajectory while also taking care to avoid the prior posterior horn repair sutures and the patient's prior metal ACL interference screw. A few centimeters distally a drill was used to target the pad connecting the socket with a small tunnel for suture passage at the anterior medial tibia. The 90 degree lasso was then inserted and the anterior horn repair sutures brought into the socket and out the tibia. Under direct visualization, the bone plug was docked into the anterior horn socket and the sutures secured over a 2 hole cortical button. Both tails from the posterior horn were tunneled along the cortex proximally and with distal retraction on the anterior horn repair incision all the root repair tails were securely tied together over bone. Copious normal saline irrigation was used to wash the knee through the arthrotomy and irrigate all the incisions. Antibiotics had been redosed appropriately. Arthrotomy was closed using #1 Vicryl in interupted lzerqk-yd-wahob fashion. The sartorial fascia was closed using 0 Vicryl in an interrupted jtfzxu-iz-qiibo fashion. Subcutaneous tissue was closed using 2-0 monocyl and the portals and skin were closed using 3-0 monocry in a bureid fashion. Mastisol was applied about the incisions followed by steri-strips, dry 4x4 gauze, ABD pads, and sterile soft roll. The foot to thigh were gentle wrapped in Enrrique compressive bandage, and the knee placed into a knee immobilizer. The patient awoke from anesthesia without complication and was transferred to the recovery room in a stable condition.
--- NOTE | 2020-04-09 15:23 | PDOC.ANES ---
Date of service: 04/09/20 Time of Service: 14:40 Anesthesia Note Report Anesthesia Note: Pt was contacted by [employer]OF[employer] TECHNICIAN for post operative follow up. During the call the patient expressed some concern that she was still having some areas of numbness in her leg. The bulk of the numbness seems to be on the medial side of her leg that had a femoral nerve block. It is somewhat unclear where all of her numbness is as this was just a phone call. We discussed temporary vs permanent nerve injury. We discussed that hopefully and likely she is just an outlier for duration and that it should continue to resolve over next next few days. We discussed that we will call her in a few days to see how her numbness is resolving.
--- NOTE | 2020-04-11 15:02 | PDOC.ANES ---
Date of service: 04/11/20 Time of Service: 15:03 Anesthesia Note Report Anesthesia Note: Phone conversation to follow up on nerve block. Patient reports full motor and sensory to entirety of the leg, both medially and laterally, but reports decreased sensation isolated to medial aspect of knee. Patient encouraged to follow up with surgeon.
== END 2020-04-05 18:10 | disposition home or self-care (01) ==
PROVIDERS: PCP Nurse Practitioner; Visit Provider Student in an Organized Health Care Education/Training Program
PROC: (CPT 29888; principal; 2020-04-05 07:30)
DX: M23.322 Other meniscus derangements, posterior horn of medial meniscus, left knee (principal); M23.312 Other meniscus derangements, anterior horn of medial meniscus, left knee; M23.8X2 Other internal derangements of left knee; Z98.890 Other specified postprocedural states; M25.562 Pain in left knee
CPT/HCPCS: 29868; 76942; 81025; J0131; J0171; J0690; J1100; J1200; J1885; J2001; J2250; J2405; J2704

== ENCOUNTER 2020-10-29 17:09 | Outpatient (CLI) | payer MEDICAID, SELFPAY ==
--- NOTE | 2020-10-29 17:00 | RT.EKG_ITS ---
APPROVED REPORT Exam: Resting ECG Reason for Exam: Heartburn Patient Location: O HR:57 bpm ECG Measurements Heart Rate [address] 132 P 65 QRSd 85 QRS 73 QT 434 T 56 QTc 423 Conclusion Sinus rhythm...normal P axis, V-rate 60- 99 Ventricular trigeminy...trigeminy string>6 w/ V complexes Probable left atrial enlargement...P >50mS, <-0.10mV V1
== END 2020-10-29 17:10 | disposition home or self-care (01) ==
LOC: DI.CM 17:10
PROVIDERS: PCP Nurse Practitioner; Visit Provider Physician Assistant
DX: R12 Heartburn (principal)
CPT/HCPCS: 93010

== ENCOUNTER 2021-01-07 04:04 | Outpatient (CLI) | payer MEDICAID, SELFPAY ==
[2021-01-07 08:20] LABS: Abs Immature Grans 0.01 10^3/uL (0.0-0.06); Absolute Basophil Count 0.06 10^3/uL (0.0-0.2); Absolute Eosinophil Count 0.08 10^3/uL (0.0-0.7); Absolute Lymphocyte Count 1.19 10^3/uL (1.2-3.4); Absolute Monocyte Count 0.44 10^3/uL (0.1-0.8); Absolute Neutrophil Count 3.43 10^3/uL (1.2-6.7); Basophils % 1.2; Eosinophils % 1.5; HGB 12.2 g/dL (11.2-15.7); Immature Grans % 0.2; Lymphocytes % 22.8; MCH 28.8 pg (27.0-33.0); MCHC 32.1 % (32.0-36.0); MCV 89.6 fL (80-95); MPV 10.2 fL (8.0-11.0); Monocytes % 8.4; Neutrophils % 65.9; Nucleated RBC 0 %; Platelet Count 217 10^3/uL (130-400); RBC 4.24 10^6/uL (3.93-5.22); RDW 12.1 % (11.7-14.6); RDW-SD 39.6 fL; WBC 5.21 10^3/uL (4.4-10.8)
[2021-01-07 08:33] LABS: ESR < 1 mm/hr (0-20)
[2021-01-07 11:43] LABS: Source Nasal/Nares
[2021-01-07 15:51] LABS: COVID-19 PCR Negative (Negative)
[2021-01-07 16:18] LABS: Rheumatoid Factor <8.6 IU/mL (<12.0)
[2021-01-08 18:49] LABS: HIV-1/2 Ag & Ab Screen Negative (Negative)
[2021-01-09 11:51] LABS: c-ANCA Negative (Negative); p-ANCA Negative (Negative)
[2021-01-11 16:41] LABS: Dilute Russell Viper Venom 31.4 secs (31.9-47.0); LA Cascade Summary (See Note); Silica Clotting Time 34.3 secs (30.2-48.4)
== END 2021-01-07 04:05 | disposition home or self-care (01) ==
LOC: LBO 04:04
PROVIDERS: Nurse Practitioner Women's Health; Surgery; PCP Nurse Practitioner; Visit Provider Otolaryngology Otolaryngology/Facial Plastic Surgery
DX: R23.2 Flushing (principal); Z20.822 Contact with and (suspected) exposure to COVID-19; Z11.4 Encounter for screening for human immunodeficiency virus [HIV]
CPT/HCPCS: 36415; 85652; 87116; 87389; 87635; 85025; 86255; 86431

== ENCOUNTER 2021-01-07 09:41 | Outpatient (REF) | payer MEDICAID, SELFPAY ==
--- NOTE | 2021-01-07 08:30 | PAPFT_PTH ---
PATIENT: Claire Eubanks LOC: [facility] U#:[id number] AGE/SX: 35/F ROOM: RE01/07/[address]: Gudelia Fonseca NP : [id number] BED: DIS: 01/07/2021 SPEC #: [id number] RECD: 01/07/21 12:57 STATUS: CASA REMary #: [id number] DOMONIQUE: 01/07/21 08:[address]: Marain OHARA,Gudelia DEPT: [facility] Cytology RECD BY: Maricel Bell ENTERED: 01/07/21 12:58 SP TYPE: PAPFT OTHR DR: Dennise Núñez, PhD CORSET FITTER Tissues: 1 - CX/ENDOCX FOR PAP SMEARS Procedures: PAP THIN PREP/UVM Screening HPV DNA PROBE Comments: [id number] (CHLAMYDIA/GC)
[2021-01-08 15:31] LABS: Chlamydia Result Negative (Negative); GC Result Negative (Negative)
== END 2021-01-07 09:42 | disposition home or self-care (01) ==
LOC: LBN 09:41
PROVIDERS: PCP Nurse Practitioner; Visit Provider Nurse Practitioner Women's Health
DX: Z11.3 Encounter for screening for infections with a predominantly sexual mode of transmission (principal); Z12.4 Encounter for screening for malignant neoplasm of cervix; Z11.51 Encounter for screening for human papillomavirus (HPV)
CPT/HCPCS: 87491; 87591; 88142; 87624

== ENCOUNTER 2021-01-09 07:51 | Day surgery (SDC) | payer MEDICAID, SELFPAY ==
--- NOTE | 2021-01-09 06:48 | W.PM.DSUDISC ---
Discharge Plan Disposition Patient Disposition: HOME Condition: Good Discharge Details Reason For Visit: egd Attending Provider: Ale Fuentes Primary Care Provider: Dennise Núñez Home Meds and New Rx's Prescriptions: Continued omeprazole 20 mg capsule,delayed release(DR/EC) 20 mg PO DAILY Qty: 90 RF: 0 norgestimate-ethinyl estradiol [Sprintec (28)] 0.25-35 mg-mcg tablet 1 tab PO DAILY Qty: 84 RF: 3 naproxen 250 mg tablet 250 - 500 mg PO BID PRN (Reason: Moderate pain or swelling) Qty: 60 RF: 0 acetaminophen [Tylenol] 325 mg Tablet 650 mg PO ONCE PRNRF: 0 Discharge Instructions Additional Instructions: Findings: mild inflammation of the stomach Follow up: as needed Other: If you have to take daily naproxen or ibuprofen I would encourage you to take daily Omeprazole. I would take the omperazole on days when you take ibuprofen or naproxen to protect your stomach. Please call if you develop: fevers >101.5 Nausea or Vomiting Abdominal pain that is not transient Rectal bleeding that is more then a tbsp A hard abdomen and inability to pass gas DAY SURGERY UNIT POST ENDOSCOPY INSTRUCTIONS Instructions for everyone who is given Anesthesia: For your safety, please do the following for the next 24 Hours: a. Do not drive or operate dangerous equipment b. Do not drink alcohol beverages or use any recreational drugs for the first 24 hours or while taking pain medications. The medications in your body may have a reaction that can be dangerous. c. Do not make any important decisions or sign any important papers 1. Generally there are no restrictions on your activity after a day or so has gone by, but you may feel a bit fatigued for a few days. 2. After you arrive home you may have a light meal and return to a normal diet as you can tolerate it without feeling sick to your stomach. 3. After surgery, you may feel pain or discomfort. This should be only transient, but if it persists please contact your doctor. 4. If there are any questions regarding the findings of your procedure, please feel free to contact your doctor. 6. If you are unable to contact your doctor with a problem, contact the hospital at [phone]. 7. Continue all your regular medications unless directed otherwise. I understand the above instructions and have no questions. Signature of Patient or Responsible Adult Escort Date/Time Name of Responsible Adult Escort Signature of Nurse Date/Time Activity:: Activity as Tolerated Diet:: As Tolerated Discharge Orders Discharge Orders: Discharge Order (Routine); Ordered 01/09/21 Ordered By: Ale Fuentes
--- NOTE | 2021-01-09 06:52 | ENDO_ITS ---
Date of service: 01/09/21 Time of Service: 11:01 Endoscopy Report DATE OF PROCEDURE: 01/09/21 PRE-OP DIAGNOSIS: reflux POST-OP DIAGNOSIS: other (mild gastritis) PROCEDURE: EGD with biopsies SURGEON: Ale Fuentes ANESTHESIA TYPE: General:No Airway ESTIMATED BLOOD LOSS: 2 PATHOLOGY: other (antrum bx and GE junction bx) COMPLICATIONS: None DISPOSITION: same day INDICATIONS: Patient's reflux symptoms improved with use of omeprazole and carafate. Sent in a refill for Omeprazole, will start at 20mg QD, if needed she will increase to 40mg QD to ensure symptom relief. Patient expressed a preference of taking lowest possible dose or no medications at all. She will titrate if needed. -Discussed Upper endoscopy procedure and the need to be NPO after midnight the night prior. Discussed possible complications of the procedure to include bleeding, pain, perforation, missed small lesion/polyp/ulcers, sore throat, aspiration and adverse reaction to the medications or sedation. Questions were answered to patient?s satisfaction. No guarantees were implied or given. Will send a note to anesthesia group for FYI prior to procedure. P// EGD under sedation FINDINGS: mild inflammation of the stomach PROCEDURE DESCRIPTION: After informed consent was obtained the patient was take to the procedure room and placed in a supine position. Monitors were applied and a time out was done. The patients name, date of , procedure type, allergies to medications and metal in their body was reviewed. A bite block was placed and the patient was sedated. Once sedated and comfortable the gastroscope was advanced through the oropharynx which was grossly normal into the esophagus. The proximal and mid- esophagus were normal. In the distal esophagus there was mild inflammation noted. The scope was advanced into the stomach and through the pylorus into the 3rd portion of the duodenum. The duodenum was noted to be normal. The scope was retracted back into the stomach and biopsies were done to rule out H. pylori. There were no ulcers. The scope was retroflexed. The cardia and fundus were noted to be normal. There no hiatal hernia noted. The scope was retracted back into the esophagus and biopsies were done of the GE junction to rule out Michelle's. The Z line was regular. The GE junction was at 38 cm. The scope was removed and the patient was woken up and taken back to [facility] in stable condition. Follow up: as needed
--- NOTE | 2021-01-09 06:54 | W.PREOPHP ---
Date of service: 01/09/21 Assessment and Plan Assessment and plan (1) GERD (gastroesophageal reflux disease): Status: Chronic (2) Epigastric pain: Status: Acute Assessment and plan: Patient's reflux symptoms improved with use of omeprazole and carafate. Sent in a refill for Omeprazole, will start at 20mg QD, if needed she will increase to 40mg QD to ensure symptom relief. Patient expressed a preference of taking lowest possible dose or no medications at all. She will titrate if needed. -Discussed Upper endoscopy procedure and the need to be NPO after midnight the night prior. Discussed possible complications of the procedure to include bleeding, pain, perforation, missed small lesion/polyp/ulcers, sore throat, aspiration and adverse reaction to the medications or sedation. Questions were answered to patient?s satisfaction. No guarantees were implied or given. Will send a note to anesthesia group for FYI prior to procedure. P// EGD under sedation History of Present Illness Narrative: 35 y/o female presents to discuss endoscopy for further evaluation of her symptoms of persistent heart burn symptoms that are associated with epigastric pressure, burping and having to sleep in an inclined position to control her symptoms. She was seen at [facility] on 10/29 at which time she was prescribed omeprazole and carafate which had a good effect on her symptoms. She completed these prescriptions and her symptoms have continued, despite diet modifications. She denies any abdominal pain, bloating or changes in her bowel habits. Of note she describes difficulty taking a deep breath, it's not pain but pressure. She is concerned this maybe secondary to hiatal hernia. Despite this feeling that intermittently occurs she has been able to maintain her physical activity level of hiking, biking and swimming 3-4x/wk. Denies chest pain, palpitations, dyspnea or dyspnea with exertion. Of note patient has a history of PVCs, she states that she has an up coming appt at [facility] to discuss possible ablation. She was previously started on verapamil, which she independently discontinued. Denies personal or family history of adverse reactions to anesthesia. Denies any history of [place], stroke, seizures, bleeding or clotting disorders. She reports having implanted metal in her left knee. Denies any history of chemotherapy or radiation. No changes in her health since she was last seen in the office Review of Systems Cardiovascular Cardiovascular: Denies chest pain, Denies chest pain at rest, Denies irregular heart rhythm, Denies dyspnea and Denies dyspnea on exertion Respiratory Respiratory: Denies cough, Denies dyspnea and Denies dyspnea on exertion Gastrointestinal Gastrointestinal: Reports as per HPI Genitourinary Genitourinary: Denies dysuria, Denies urinary incontinence and Denies urinary urgency Endocrine Endocrine: Reports system reviewed and no additional complaints, except as documented Hematologic/Lymphatic Hematologic/Lymphatic: Denies easy bruising and Denies lymphadenopathy [facility] Medical History History of HPV infection 2016, 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 Sister Alcohol abuse Substance abuse Social History Smoking/Tobacco Use Status: Never Smoking risk assessment performed?: Yes Alcohol Intake: current Alcohol Intake frequency: 0-2 drinks per day Alcohol type: beer Drug use: Occasionally Substance use type: marijuana Caregiver/Support person: No Household members: none Housing: house Communication Needs: None Do you need help understanding health information?: Never Pets and animals: Yes Pets and animals: dog(s) Sexually active: No Current gender identity: female What is your relationship status?: never How often do you talk on the phone with friends or family?: twice per week How often do you get together with friends or relatives?: three or more times per week How often do you attend bahai or confucianist services?: 1-3 times per year Do you belong to any clubs or organized social groups?: yes Panel score (0-1 are the most socially isolated patients): 2 What type of physical activity do you participate in: bicycling and other Details: skiing Duration: 30-45 minutes/day Frequency: 1-2 times per week Chante/Oriental Orthodox: none Special chante needs: No Seatbelt use: always Helmet use: Yes Helmet use: always Drive intox or ride w/intox patient transportation driver: No Do you feel safe at home: Yes Do you feel safe in your relationship?: Yes Female Reproductive History Menstrual Duration of menses: 3-5 days control method: pills History History 0 Para Hx # Term Pregnancies Multiple births Hx # Pregnancies Ectopic pregnancies AB induced Hx Number of Living Children AB spontaneous Meds Allergies and Home Medications Allergies Allergy/AdvReac Type Severity Reaction Status Date / Time Penicillins Allergy Mild Skin Rash Verified 01/09/21 08:02 Home Medications Medication Instructions Recorded Confirmed Type naproxen 250 - 500 mg PO BID PRN #60 tab 02/03/20 01/08/21 Rx acetaminophen [Tylenol] 650 mg PO ONCE PRN 04/05/20 01/08/21 History omeprazole 20 mg capsule,delayed 20 mg PO DAILY #90 cap 12/07/20 01/08/21 Rx release norgestimate 0.25 mg-ethinyl 1 tab PO DAILY #84 tab 01/07/21 01/09/21 Rx estradiol 35 mcg tablet Exam Const General: healthy appearing and comfortable Resp Effort & Inspection: normal respiratory effort Auscultation: clear to auscultation bilaterally Cardio Rate: regular rate Rhythm: regular rhythm Heart Sounds: no click, no gallops and no murmurs
[2021-01-09 08:04] VITALS: BP 114/69; PULSE 64; RESP 16; TEMP 36.4; O2SAT 99
[2021-01-09] MEDS: Lactated Ringers 1,000 ML 80 ML IV (08:27)
--- NOTE | 2021-01-09 08:40 | W.ANESPRE ---
General Info Date of Service Date Performed: 01/09/21 Height: 5 ft 9 in Weight: 68.6 kg Body Mass Index (BMI): 22.3 Surgical Procedure: Operation Date: 01/09/21 10:05 Proposed Procedures Side Surgeon p Gastroscopy Ale Fuentes MD Pre-Op Diagnosis Post-Op Diagnosis GERD, EPIGASTRIC PAIN Meds Allergies and Home Medications Allergies Allergy/AdvReac Type Severity Reaction Status Date / Time Penicillins Allergy Mild Skin Rash Verified 01/09/21 08:02 Home Medication Medication Instructions Recorded naproxen 250 - 500 mg PO BID PRN #60 tab 02/03/20 acetaminophen [Tylenol] 650 mg PO ONCE PRN 04/05/20 omeprazole 20 mg capsule,delayed 20 mg PO DAILY #90 cap 12/07/20 release norgestimate 0.25 mg-ethinyl 1 tab PO DAILY #84 tab 01/07/21 estradiol 35 mcg tablet Current Visit Medications: Current Medications Generic Name Dose Route Start Last Admin Trade Name Freq PRN Reason Stop Dose Admin Hyoscyamine Sulfate 0.125 mg 01/09/21 06:53 Hyoscyamine 0.125 Mg Sl/Oral/Chew SL DIRECTED PRN Ringer's Solution 1,000 mls @ 80 mls/hr 01/09/21 06:00 01/09/21 08:27 IV 01/29/21 23:59 80 mls/hr INFUSION [facility] Administration IV Miscellaneous Supplies 1 each 01/09/21 06:00 Iv Access IV 01/29/21 23:59 DIRECTED [facility] Ondansetron HCl 4 mg 01/09/21 06:53 Ondansetron 4 Mg/2 Ml Vial IVP Q4H PRN PRN Nausea / Vomiting Sodium Chloride 0 ml 01/09/21 06:00 Normal Saline Flush 10 Ml Syr IV 01/29/21 23:59 PRN PRN Sodium Chloride 0 ml 01/09/21 06:00 Normal Saline 10 Ml Vial IJ 01/29/21 23:59 DIRECTED PRN Sterile Water 0 ml 01/09/21 06:00 Water,Injection,Sterile 10 Ml Vial IJ 01/29/21 23:59 DIRECTED PRN PFSH Active Problems Active Problems: Problem Status Onset Code Epigastric pain R10.13 Depression F32.9 Anxiety F41.9 Irregular heartbeat I49.9 Rash and nonspecific skin eruption R21 Bradycardia R00.1 GERD (gastroesophageal reflux disease) K21.9 Oral contraceptive use Z30.41 Premature ventricular contractions I49.3 History of HPV infection Z86.19 Medical History Medical History History of HPV infection 2017, 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 Tobacco Smoking/Tobacco Use Status: Never Passive smoking exposure: Yes Alcohol Alcohol Intake: current Alcohol intake frequency: 0-2 drinks per day Alcohol type: beer Substance Use Substance use: Occasionally Substance use type: marijuana Prental History History 0 Para Hx # Term Pregnancies Multiple births Hx # Pregnancies Ectopic pregnancies AB induced Hx Number of Living Children AB spontaneous Vital Signs and Lab Results Vital Signs Most Recent Vital Signs in EMR: Most Recent Vital Signs Temp Pulse Resp BP Pulse Ox 36.4 C L 64 16 114/69 99 01/09/21 08:04 01/09/21 08:04 01/09/21 08:04 01/09/21 08:04 01/09/21 08:04 Point of Care Results Point of Care Results: POC- Test(urine) Negative 01/09/21 08:31 Lab Results Blood Type / Crossmatch: No Data to Display Complete Blood Count: White Blood Count 5.21 10^3/uL (4.4-10.8) 01/07/21 08:06 01/07/21 Red Blood Count 4.24 10^6/uL (3.93-5.22) 01/07/21 08:06 01/07/21 Hemoglobin 12.2 g/dL (11.2-15.7) 01/07/21 08:06 01/07/21 Hematocrit 38.0 % (36.0-46.0) 01/07/21 08:06 01/07/21 Platelet Count 217 10^3/uL (130-400) 01/07/21 08:06 01/07/21 Complete Metabolic Panel: No Data to Display Liver Function Panel: No Data to Display Coagulation Panel: No Data to Display Cardiac Panel: No Data to Display Arterial Blood Gas: No Data to Display Venous Blood Gas: No Data to Display Pancreas Panel: No Data to Display Thyroid Panel: No Data to Display Infectious Disease: Coronavirus (COVID-19)(PCR) Negative (Negative) 01/07/21 11:00 01/07/21 Coronavirus 2019 Source Nasal/Nares 01/07/21 11:00 01/07/21 HIV (1&2) Ag and Ab, 4th Generation Negative (Negative) 01/07/21 08:00 01/07/21 Neisseria gonorrhoeae DNA Probe Negative (Negative) 01/07/21 08:30 01/07/21 Blood Cultures: No Data to Display Toxicology Panel: No Data to Display Panel: Urine HCG, Qualitative Negative 01/07/21 08:18 01/07/21 Imaging and Studies Imaging and Studies EKG Summary: 10/20: Conclusion Sinus rhythm...normal P axis, V-rate 60- 99 Ventricular trigeminy...trigeminy string>6 w/ V complexes Probable left atrial enlargement...P >50mS, <-0.10mV V1 Stress Test Summary: 03/2020: Stress ECG Conclusion 1. The patient exercised for 17 minutes (17 METS). Exercise was stopped due to fatigue. 2. The patient had frequent PVCs at baseline as well as during exercise and through recovery. The PVCs appear monomorphic in nature. 3. There were no ST changes suggestive of ischemia. 4. The Mercedes Score (14) estimates an annual cardiovascular mortality of 0% and a five year survival of 96%. Using the Mercedes Score there is a low probability of any angiographic coronary disease. Mercedes Treadmill Score is 14 which is Low risk. Echocardiogram Summary: 03/22: Conclusion Left Ventricle : The left ventricle is normal size. The left ventricular systolic function is normal. The left ventricular ejection fraction is within the normal range. There is normal left ventricular wall thickness. There is normal LV segmental wall motion. The left ventricular diastolic function is normal. LVEF is 60% with some [id number]-cock variability given high number of PVCs. Right Ventricle : The right ventricle is normal size. The right ventricular systolic function is normal. The RVSP is 20.9mmHg. Atria : The left atrium size is normal. The right atrium size is normal. Valves: There are no hemodynamically significant valvular lesions. Great Vessels : The aortic root is normal in size. The ascending aorta is normal in size. Aortic arch is normal in caliber. IVC is normal in size and collapses >50% with inspiration. Anesthesia Assessment and Plan Anesthesia History Personal History: No History of Anesthesia Complications Family History: No Family History of Anesthesia Complications Exercise Tolerance Exercise Tolerance: Metabolic Equivalents>4 Pertinent Negatives Pertinent Negatives: No Major Cardiovascular Symptoms or Complaints and No Major Pulmonary Symptoms or Complaints Cardiac & Pulmonary Exam Cardiac Exam: Normal S1/S2 Heart Sounds Pulmonary Exam: Clear Bilateral Breath Sounds Implantable Cardiac Device Does patient have a Pacemaker or an ICD?: No Airway Exam Known Difficult Airway: No Mallampati Class: 2 Mouth Opening: Normal (> 3cm) Thyromental Distance: Greater than 3 cm Neck Range of Motion: Full ROM Neck Circumference: Normal Teeth Condition: Normal Dentition ASA Classification ASA Score: ASA 2 Emergency Case?: No NPO Status NPO Status: NPO Clears >2 hours, Solids >8 hours Status Status: Negative HCG Anesthesia Plan Resuscitation Status: Full Code Anesthesia Technique: General Anesthesia Airway Planned: Natural Airway Monitors Used: Standard Monitors
[2021-01-09 09:29] VITALS: BMI 22.3
--- NOTE | 2021-01-09 09:45 | STOM_PTH ---
PATIENT: Claire Eubanks LOC: [facility] U#:[id number] AGE/SX: 35/F ROOM: RE01/09/[address]: Ale Fuentes MD : [id number] BED: DIS: 01/09/2021 SPEC #: [id number] RECD: 01/09/21 13:04 STATUS: CASA ISABEL #: [id number] DOMONIQUE: 01/09/21 09:[address]: Ale Fuentes DEPT: Surgical Specimen RECD BY: Maricel Bell ENTERED: 01/09/21 13:05 SP TYPE: STOMACH OTHR DR: Dennise Núñez, PhD UNDERCOATER Tissues: 1 - STOMACH BIOPSY 2 - ESOPHAGUS BIOPSY Procedures: GROSS AND MICRO LEVEL 4 Comments: [id number]
[2021-01-09 10:08] VITALS: BP 102/67; PULSE 53; RESP 16; TEMP 36.2; O2SAT 98
[2021-01-09 10:37] VITALS: BP 110/60; PULSE 53; RESP 16; TEMP 36.1; O2SAT 100
--- NOTE | 2021-01-09 11:30 | W.ANESPOSTOP ---
Postoperative Evaluation Date, Time and Location Date Performed: 01/09/21 Time Performed: 10:30 Patient Location: Day Surgery Unit Vital Signs Most Recent Imported Vital Signs: Most Recent Vital Signs Temp Pulse Resp BP Pulse Ox 36.1 C L 53 L 16 110/60 100 01/09/21 10:37 01/09/21 10:37 01/09/21 10:37 01/09/21 10:37 01/09/21 10:37 Pain Score Most Recent Pain Score: Most Recent Pain Score Pain Level 0 01/09/21 10:37 Assessment Mental Status: Awake (Alert & Oriented to Patient Baseline) Airway and Respiratory Function: Patent airway with normal (patient baseline) respiratory exam Cardiovascular Function: Hemodynamically Stable Hydration Status: Adequately Hydrated Nausea & Vomiting: No Nausea or Vomiting Pain: Pt. Denies Any Pain Peripheral Nerve Block: Patient did not receive a nerve block
== END 2021-01-09 10:51 | disposition home or self-care (01) ==
LOC: SUR 07:51
PROVIDERS: PCP Nurse Practitioner; Visit Provider Surgery
PROC: 0DJ68ZZ Inspection of Stomach, Via Natural or Artificial Opening Endoscopic (ICD-10-PCS; CPT 43235; principal; 2021-01-09 10:00)
DX: K21.00 Gastro-esophageal reflux disease with esophagitis, without bleeding (principal); K29.70 Gastritis, unspecified, without bleeding
CPT/HCPCS: 43239; 88305; J2704

== ENCOUNTER 2021-01-30 09:09 | Outpatient (CLI) | payer MEDICAID, SELFPAY ==
--- NOTE | 2021-01-30 09:00 | RT.EKG_ITS ---
APPROVED REPORT Exam: Resting ECG Reason for Exam: irreg hr Patient Location: O HR:69 bpm ECG Measurements Heart Rate 69 AXIS ND 169 P 102 QRSd 86 QRS 54 QT 381 T 33 QTc 408 Conclusion Sinus rhythm Ventricular trigeminy...trigeminy string>6 w/ V complexes
== END 2021-01-30 09:10 | disposition home or self-care (01) ==
LOC: DI.CARD 09:14
PROVIDERS: PCP Nurse Practitioner; Visit Provider Internal Medicine Cardiovascular Disease
DX: I49.9 Cardiac arrhythmia, unspecified (principal)
CPT/HCPCS: 93010

== ENCOUNTER 2021-04-17 08:36 | Outpatient (CLI) | payer MEDICAID, SELFPAY ==
--- NOTE | 2021-04-17 08:22 | DI.RAD_ITS ---
Exam(s) XR KNEE LT 2V AP,LAT EXAM: XR KNEE LT 2V AP,LAT CLINICAL HISTORY: left knee pain. TECHNIQUE: 2D digital imaging was performed of the left knee. Two images were obtained. AP and lat eral views were obtained. COMPARISON: CR XR KNEE LT 2V AP,LAT from 02/15/2020 FINDINGS: BONES: No acute fracture is present. No bony destructive lesion is seen. Postsurgical changes are ag ain seen of an ACL repair. JOINTS: The knee is normally aligned. There is a small joint effusion. SOFT TISSUE: Normal. IMPRESSION: Small joint effusion. DATA REPOSITORY: RADIATION DOSE DELIVERED:
== END 2021-04-17 08:37 | disposition home or self-care (01) ==
LOC: DIORS 08:37
PROVIDERS: PCP Nurse Practitioner; Referring Provider Nurse Practitioner; Visit Provider Student in an Organized Health Care Education/Training Program
DX: M25.562 Pain in left knee (principal); M25.462 Effusion, left knee
CPT/HCPCS: 73560

== ENCOUNTER 2021-04-19 01:09 | Outpatient (CLI) | payer MEDICAID, SELFPAY ==
[2021-04-19 13:09] LABS: Source Nasal/Nares
[2021-04-19 17:39] LABS: COVID-19 PCR Negative (Negative)
== END 2021-04-19 01:10 | disposition home or self-care (01) ==
LOC: LBO 01:10
PROVIDERS: PCP Nurse Practitioner; Visit Provider Student in an Organized Health Care Education/Training Program
DX: Z20.822 Contact with and (suspected) exposure to COVID-19 (principal)
CPT/HCPCS: 87635

== ENCOUNTER 2021-04-22 06:19 | Day surgery (SDC) | payer MEDICAID, SELFPAY ==
[2021-04-22] VITALS (8 sets, daily range): BP systolic 89–123; BP diastolic 46–81; PULSE 40–65; RESP 10–16; TEMP 36–36.6; O2SAT 100; BMI 22.3
--- NOTE | 2021-04-22 06:18 | W.ANESPRE ---
General Info Date of Service Date Performed: 04/22/21 Height: 5 ft 9 in Weight: 68.492 kg Body Mass Index (BMI): 22.3 Surgical Procedure: Operation Date: 04/22/21 07:40 Proposed Procedure Side Surgeon p Hardware Removalof Lt Knee Left Golden Chilel MD Meds Allergies and Home Medications Allergies Allergy/AdvReac Type Severity Reaction Status Date / Time Penicillins Allergy Mild Skin Rash Verified 04/22/21 06:49 Home Medication Medication Instructions Recorded naproxen 250 mg tablet 250 - 500 mg PO BID PRN #60 tab 02/03/20 acetaminophen 325 mg tablet 650 mg PO ONCE PRN 04/05/20 (Tylenol) omeprazole 20 mg capsule,delayed 20 mg PO DAILY #90 cap 12/07/20 release norgestimate 0.25 mg-ethinyl 1 tab PO DAILY #84 tab 01/07/21 estradiol 35 mcg tablet (Sprintec (28)) Current Visit Medications: Current Medications Generic Name Dose Route Start Last Admin Trade Name Freq PRN Reason Stop Dose Admin Ringer's Solution 1,000 mls @ 100 mls/hr 04/22/21 06:00 IV 05/19/21 23:59 INFUSION AMY Cefazolin Sodium/Dextrose 2 gm in 50 mls @ 100 mls/hr 04/22/21 06:00 Ancef Duplex IVPB 04/22/21 16:00 PREOP AMY IV Miscellaneous Supplies 1 each 04/22/21 06:00 Iv Access IV 05/19/21 23:59 DIRECTED AMY Naproxen 250 - 500 mg 04/22/21 05:44 Naproxen 500 Mg Tab PO BID PRN PRN Oxycodone HCl 5 - 10 mg 04/22/21 05:44 Oxycodone 5 Mg Tab PO Q4H PRN PRN Sodium Chloride 0 ml 04/22/21 06:00 Normal Saline Flush 10 Ml Syr IV 05/19/21 23:59 PRN PRN Sodium Chloride 0 ml 04/22/21 06:00 Normal Saline 10 Ml Vial IJ 05/19/21 23:59 DIRECTED PRN Sterile Water 0 ml 04/22/21 06:00 Water,Injection,Sterile 10 Ml Vial IJ 05/19/21 23:59 DIRECTED PRN PFSH Active Problems Active Problems: Problem Status Onset Code Painful orthopaedic hardware T84.84XA Chondromalacia, left knee M94.262 Epigastric pain R10.13 Anxiety F41.9 Irregular heartbeat I49.9 GERD (gastroesophageal reflux disease) K21.9 Medical History Medical History Bradycardia athletic Depression History of HPV infection 2017, cleared 2019 Left ACL tear Oral contraceptive use Premature ventricular contractions holter 2019 infrequent, on verapamil- pt. 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 Tobacco Smoking/Tobacco Use Status: Never Passive smoking exposure: Yes Alcohol Alcohol Intake: current Alcohol intake frequency: 0-2 drinks per day Alcohol type: beer and wine Substance Use Substance use: Occasionally Substance use type: marijuana Prental History History 0 Para Hx # Term Pregnancies Multiple births Hx # Pregnancies Ectopic pregnancies AB induced Hx Number of Living Children AB spontaneous Vital Signs and Lab Results Vital Signs Most Recent Vital Signs in EMR: Temp Pulse Resp BP Pulse Ox 36.6 C 65 16 123/81 100 04/22/21 06:38 04/22/21 06:38 04/22/21 06:38 04/22/21 06:38 04/22/21 06:38 Lab Results Blood Type / Crossmatch: No Data to Display Complete Blood Count: No Data to Display Complete Metabolic Panel: No Data to Display Liver Function Panel: No Data to Display Coagulation Panel: No Data to Display Cardiac Panel: No Data to Display Arterial Blood Gas: No Data to Display Venous Blood Gas: No Data to Display Pancreas Panel: No Data to Display Thyroid Panel: No Data to Display Infectious Disease: Coronavirus (COVID-19)(PCR) Negative (Negative) 04/19/21 09:32 04/19/21 Coronavirus 2019 Source Nasal/Nares 04/19/21 09:32 04/19/21 Blood Cultures: No Data to Display Toxicology Panel: No Data to Display Panel: No Data to Display Imaging and Studies Imaging and Studies Study information below may be from another EMR and interpreted by another provider. Please see original notes in EMR for more complete details. EKG Summary: 10/20: Conclusion Sinus rhythm...normal P axis, V-rate 60- 99 Ventricular trigeminy...trigeminy string>6 w/ V complexes Probable left atrial enlargement...P >50mS, <-0.10mV V1 Stress Test Summary: 03/2020: Stress ECG Conclusion 1. The patient exercised for 17 minutes (17 METS). Exercise was stopped due to fatigue. 2. The patient had frequent PVCs at baseline as well as during exercise and through recovery. The PVCs appear monomorphic in nature. 3. There were no ST changes suggestive of ischemia. 4. The Mercedes Score (14) estimates an annual cardiovascular mortality of 0% and a five year survival of 96%. Using the Mercedes Score there is a low probability of any angiographic coronary disease. Mercedes Treadmill Score is 14 which is Low risk. Echocardiogram Summary: 03/22: Conclusion Left Ventricle : The left ventricle is normal size. The left ventricular systolic function is normal. The left ventricular ejection fraction is within the normal range. There is normal left ventricular wall thickness. There is normal LV segmental wall motion. The left ventricular diastolic function is normal. LVEF is 60% with some [id number] variability given high number of PVCs. Right Ventricle : The right ventricle is normal size. The right ventricular systolic function is normal. The RVSP is 20.9mmHg. Atria : The left atrium size is normal. The right atrium size is normal. Valves: There are no hemodynamically significant valvular lesions. Great Vessels : The aortic root is normal in size. The ascending aorta is normal in size. Aortic arch is normal in caliber. IVC is normal in size and collapses >50% with inspiration. Anesthesia Assessment and Plan Anesthesia History Personal History: No History of Anesthesia Complications Family History: No Family History of Anesthesia Complications Exercise Tolerance Exercise Tolerance: Metabolic Equivalents>4 Cardiac & Pulmonary Exam Cardiac Exam: Normal S1/S2 Heart Sounds Pulmonary Exam: Clear Bilateral Breath Sounds Implantable Cardiac Device Does patient have a Pacemaker or an ICD?: No Airway Exam Known Difficult Airway: No Mallampati Class: 2 Mouth Opening: Normal (> 3cm) Thyromental Distance: Greater than 3 cm Neck Range of Motion: Full ROM Neck Circumference: Normal Teeth Condition: Normal Dentition ASA Classification ASA Score: ASA 2 Emergency Case?: No NPO Status NPO Status: NPO Clears >2 hours, Solids >8 hours Status Status: Negative HCG Anesthesia Plan Resuscitation Status: Full Code Anesthesia Technique: General Anesthesia Airway Planned: Natural Airway Monitors Used: Standard Monitors Preoperative Comments:: 35 yo female for hardware removal. Sig PMHx: anxiety, occ EtOH/cannabis, GERD (omeprozole) Echo: LVEF 60%, no sig valve lesions. Previous Anes: mac 3 grade 2a. EGD with ~700 mg prop.
[2021-04-22] MEDS: Lactated Ringers 1,000 ML 100 ML IV (06:53)
--- NOTE | 2021-04-22 07:00 | DI.RAD_ITS ---
Exam(s) XR TIB/FIB LT EXAM: XR TIB/FIB LT CLINICAL HISTORY: left leg hardware removal. TECHNIQUE: 2D digital imaging was performed. COMPARISON: No exams were available for comparison FINDINGS: Fluoroscopy was provided during orthopedic procedure. See procedure report for details Total fluoroscopy time 5.4 seconds appear Cumulative dose 0.2061mGy IMPRESSION: DATA REPOSITORY: RADIATION DOSE DELIVERED:
[2021-04-22] MEDS: ceFAZolin 2 GM/50 ML BAG IVPB (07:28)
[2021-04-22] MEDS: Bupivacaine 0.5% Pres-Free 30 ML VIAL (08:00)
--- NOTE | 2021-04-22 08:03 | PDOC.DSDIS_ITS ---
Discharge Plan Disposition Patient Disposition: HOME Condition: Stable Discharge Details Reason For Visit: Left knee surgery Attending Provider: Golden Chilel Primary Care Provider: Dennise Núñez Home Meds and New Rx's Prescriptions: Continued omeprazole 20 mg capsule,delayed release(DR/EC) 20 mg PO DAILY Qty: 90 0RF Rx Instructions: Take 1 cap daily on an empty stomach. If heart burn symptoms persist, may increase to 2 caps (40mg) daily norgestimate-ethinyl estradiol [Sprintec (28)] 0.25-35 mg-mcg tablet 1 tab PO DAILY Qty: 84 3RF naproxen 250 mg tablet 250 - 500 mg PO BID PRN (Reason: Moderate pain or swelling) Qty: 60 0RF acetaminophen [Tylenol] 325 mg Tablet 650 mg PO ONCE PRN0RF Discharge Instructions Additional Instructions: Surgery: Left knee removal of hardware Activity: Weightbearing as tolerated. Avoid high impact exercises for few days. Gentle compression with Ernrique wrap to minimize swelling. Prescriptions: None May use [id number] Tylenol and/or Motrin/Aleve/Advil as needed for pain. Dressings: Leave dressing in place for 2-3 days. May then remove and leave open to air or cover incisions with Band-Aids. May shower after 5 days. Follow-up: 10-[address] Chilel Let us know right away if you develop any redness, drainage, fevers, chest pain, or trouble breathing. Do not drink alcohol or drive for at least 24 hours after anesthesia. Please call the office during business hours with any questions or concerns. Referrals: Golden Chilel MD [ [facility] STAFF PHYSICIAN] - Discharge Orders Discharge Orders: Discharge Order (Routine); Ordered 04/22/21 Ordered By: Golden Chilel DS: Diagnosis Discharge Diagnosis (1) Painful orthopaedic hardware: Status: Acute
--- NOTE | 2021-04-22 08:08 | W.PM.OP ---
Date of service: 04/22/21 Time of Service: 07:30 Operative Note Operative Note DATE OF PROCEDURE: 04/22/21 PRE-OP DIAGNOSIS: Left knee pretibial painful/symptomatic hardware POST-OP DIAGNOSIS: same PROCEDURE: Left knee removal of deep hardware, CPT #00914 SURGEON: Golden Chilel CLEANER ASSISTANT: Iraida Brantley ANESTHESIA TYPE: Local By Surgeon and General:No Airway Refer to Anesthesia Record ESTIMATED BLOOD LOSS: 5 TOURNIQUET TIME: 0 COMPLICATIONS: None Patient was transported to: PACU Patient's condition: stable Indications: Please see complete medical record for details. Findings: Abundant bursitis and prominent scarring over both cortical buttons and suture knots. Procedure Description: In the operating room, general anesthesia was induced. The patient was positioned supine on the operating room table. All bony prominences were well-padded. Preoperative antibiotics were administered. The left knee was prepped and draped in the usual sterile fashion. The correct patient, procedure, and side of the procedure were all verified prior to incision. 20 cc of mixture of lidocaine epinephrine and bupivacaine plain was infiltrated about the planned anteromedial pretibial incisions for removal of both cortical buttons. Each incision was opened localized over each button using tactile feedback and fluoroscopic guidance. Spreading of soft tissues and removal of tissue exposed each button. Buttons were clamped, permanent sutures cut, and bones removed in entirety. Permanent sutures were then cut flush with the bone and care was taken to ensure all suture material was removed from each site. Bone cortex was lightly abraded about removal sites. Hemostasis was readily achieved. 2-0 Monocryl was used to close deep tissue buried erupted fashion. 3-0 Monocryl was used to close skin followed by Steri-Strips, Xeroform, and 4x4 gauze applied over both incisions. The knee was wrapped gently in an Enrrique compressive bandage The patient awoke from anesthesia without complication and was transferred to the recovery room in a stable condition.
--- NOTE | 2021-04-22 08:36 | W.ANESPOSTOP ---
Postoperative Evaluation Date, Time and Location Date Performed: 04/22/21 Time Performed: 08:36 Patient Location: PACU Vital Signs Most Recent Imported Vital Signs: Most Recent Vital Signs Temp Pulse Resp BP Pulse Ox 36.2 C L 53 L 12 89/46 L 100 04/22/21 08:13 04/22/21 08:30 04/22/21 08:30 04/22/21 08:30 04/22/21 08:30 Pain Score Most Recent Pain Score: Most Recent Pain Score Pain Level 0 04/22/21 08:30 Assessment Mental Status: Arousable with meaningful communication Airway and Respiratory Function: Patent airway with normal (patient baseline) respiratory exam Cardiovascular Function: Hemodynamically Stable Hydration Status: Adequately Hydrated Nausea & Vomiting: No Nausea or Vomiting Pain: Pain is tolerable per patient Peripheral Nerve Block: Patient did not receive a nerve block
== END 2021-04-22 10:00 | disposition home or self-care (01) ==
LOC: SUR 06:20
PROVIDERS: PCP Nurse Practitioner; Visit Provider Student in an Organized Health Care Education/Training Program
PROC: (CPT 20680; principal; 2021-04-22 07:30)
DX: T84.84XA Pain due to internal orthopedic prosthetic devices, implants and grafts, initial encounter (principal); F41.9 Anxiety disorder, unspecified; K21.9 Gastro-esophageal reflux disease without esophagitis; M70.52 Other bursitis of knee, left knee
CPT/HCPCS: 20680; 81025; 73590; J0690; J1100; J1885; J2001; J2250; J2405; J2704

== ENCOUNTER 2021-10-25 16:12 | Outpatient (CLI) | payer MEDICAID, SELFPAY ==
[2021-10-29 19:12] LABS: Penicillin G IgE <0.35 kU/L; Penicillin V IgE <0.35 kU/L
== END 2021-10-25 16:13 | disposition home or self-care (01) ==
LOC: LBO 16:13
PROVIDERS: PCP Nurse Practitioner; Visit Provider Physician Assistant
DX: J31.0 Chronic rhinitis (principal)
CPT/HCPCS: 36415; 86003

== ENCOUNTER 2021-10-30 09:59 | Outpatient (CLI) | payer MEDICAID, SELFPAY ==
--- NOTE | 2021-10-30 09:45 | DI.RAD_ITS ---
Exam(s) XR KNEE LT 3V AP,LAT,SHELDON EXAM: XR KNEE LT 3V AP,LAT,SHELDON CLINICAL HISTORY: left knee f/u. TECHNIQUE: 2D digital imaging was performed. COMPARISON: CR XR KNEE LT 2V AP,LAT from 04/17/2021 FINDINGS: 3 views Again noted is evidence of prior ACL surgery with ACL graft fasteners again evident, unchanged positi on. However, previously present other hardware at the level the medial tibial metaphysis is not seen on the present study. There are no fractures. Mild-moderate degenerative changes in the medial com partment are again noted. Lateral compartment unremarkable. Joint effusion is again noted. IMPRESSION: DATA REPOSITORY: RADIATION DOSE DELIVERED:
== END 2021-10-30 10:00 | disposition home or self-care (01) ==
LOC: DIORS 10:00
PROVIDERS: PCP Nurse Practitioner; Referring Provider Nurse Practitioner; Visit Provider Student in an Organized Health Care Education/Training Program
DX: M17.12 Unilateral primary osteoarthritis, left knee; M25.462 Effusion, left knee; Z98.890 Other specified postprocedural states; S83.512D Sprain of anterior cruciate ligament of left knee, subsequent encounter
CPT/HCPCS: 73562

== ENCOUNTER → 2021-11-01 00:40 | Outpatient (CLI) | payer MEDICAID, SELFPAY ==
--- NOTE | 2021-11-01 07:00 | DI.MRI_ITS ---
Exam(s) MR LOWER JOINT LT WO EXAM: MR LOWER JOINT LT WO CLINICAL HISTORY: recurrent medial meniscus tear hx transplant, internal derangement, M23.92 TECHNIQUE: Multiplanar multisequence MRI was performed.. COMPARISON: MR MR LOWER JOINT LT WO from 08/25/2019 FINDINGS: MR examination of the knee was performed according to the usual protocol. There is a moderate-sized knee joint effusion. There is a prior ACL reconstruction with associated bony changes, otherwise no significant bony signa l abnormality seen. There are hypertrophic marginal osteophytes of the medial and lateral tibiofemor al joints. Medial tibiofemoral joint: The articular cartilage of the femur and tibia shows irregular thinning, s urface irregular areas of the medial femoral condyle are noted. The medial meniscus is torn and defi cient with peripheral displacement of remaining meniscal tissue period. There is a probable meniscal cyst. Medial collateral ligament shows abnormal signal consistent with grade 1 strain period. No p osteromedial corner injury seen. Lateral tibiofemoral joint: The articular cartilage of the femur and tibia appears well maintained. The meniscus and attachments appear intact. The lateral collateral ligament complex and posterolater al corner structures appear intact. Patellofemoral joint and extensor mechanism: The articular cartilage of the patellofemoral joint appe ars intact. The superior and inferior patellar fat pads appear normal with no signal abnormality. The quadriceps tendon and patellar tendon appear intact with no evidence of a tear or significant katerine ma. The medial and lateral retinacula appear intact. Cruciate ligaments: Intact ACL reconstruction noted. Unremarkable appearance of the posterior crucia te ligament and attachments period. Tibiofibular joint: No specific abnormality involving the tibiofibular joint. IMPRESSION: Intact ACL reconstruction. Complex severe medial meniscal tear with loss of meniscal substance, associated degenerative changes of the articular cartilage of the medial tibiofemoral joint. DATA REPOSITORY:
== END ==
PROVIDERS: PCP Nurse Practitioner; Visit Provider Student in an Organized Health Care Education/Training Program
DX: M23.8X2 Other internal derangements of left knee; Z98.890 Other specified postprocedural states; M25.462 Effusion, left knee; S83.232A Complex tear of medial meniscus, current injury, left knee, initial encounter
CPT/HCPCS: 73721

== ENCOUNTER 2021-11-22 07:55 | Day surgery (SDC) | payer MEDICAID, SELFPAY ==
[2021-11-22] VITALS (8 sets, daily range): BP systolic 95–137; BP diastolic 49–78; PULSE 45–58; RESP 12–16; TEMP 36.2–36.6; O2SAT 99–100; BMI 21.5
--- NOTE | 2021-11-22 08:26 | ANES.PREOP_ITS ---
General Info Date of Service Date Performed: 11/22/21 Height: 5 ft 9 in Weight: 66.1 kg Body Mass Index (BMI): 21.5 Surgical Procedure: Operation Date: 11/22/21 09:40 Proposed Procedure Side Surgeon p Knee Arthroscopy w/ Any Indicated Meniscal, Chondral, and Synovial Surgery Left Golden Chilel MD Meds Allergies and Home Medications Allergies Allergy/AdvReac Type Severity Reaction Status Date / Time No Known Allergies Allergy Verified 11/22/21 08:12 Home Medication Medication Instructions Recorded naproxen 250 mg tablet 250 - 500 mg PO BID PRN Moderate 02/03/20 pain or swelling #60 tabs acetaminophen 325 mg tablet 650 mg PO ONCE PRN 04/05/20 (Tylenol) omeprazole 20 mg capsule,delayed 20 mg PO DAILY PRN GERD 06/14/21 release bupropion HCl 300 mg 24 hr tablet, 300 mg PO QAM #30 tabs 09/26/21 extended release (Wellbutrin XL) valacyclovir 1 gram tablet 2,000 mg PO BID PRN cold sore #30 10/15/21 tabs bupropion HCl 150 mg 24 hr tablet, 150 mg PO QAM #90 tabs 11/13/21 extended release aspirin 81 mg tablet,delayed 81 mg PO DAILY Prevent blood clot 11/22/21 release 14 days #14 tabs naproxen 250 mg tablet 250 - 500 mg PO BID PRN #40 tabs 11/22/21 oxycodone 5 mg tablet 5 - 10 mg PO Q4H PRN moderate to 11/22/21 severe pain #18 tabs Current Visit Medications: Current Medications Generic Name Dose Route Start Last Admin Trade Name Phillipq PRN Reason Stop Dose Admin Ringer's Solution 1,000 mls @ 30 mls/hr 11/22/21 06:00 IV 11/22/21 16:00 INFUSION AMY Cefazolin Sodium/Dextrose 2 gm in 50 mls @ 100 mls/hr 11/22/21 06:00 Ancef Duplex IVPB 11/22/21 23:59 PREOP [facility] IV Miscellaneous Supplies 1 each 11/22/21 06:00 Iv Access IV 11/22/21 23:59 DIRECTED AMY Oxycodone HCl 0 mg 11/22/21 07:15 Oxycodone 5 Mg Tab PO Q3H PRN PRN Pain Sodium Chloride 0 ml 11/22/21 06:00 Normal Saline Flush 10 Ml Syr IV 11/22/21 23:59 PRN PRN Sodium Chloride 0 ml 11/22/21 06:00 Normal Saline 10 Ml Vial IJ 11/22/21 23:59 DIRECTED PRN Sterile Water 0 ml 11/22/21 06:00 Water,Injection,Sterile 10 Ml Vial IJ 11/22/21 23:59 DIRECTED PRN PFSH Active Problems Active Problems: Problem Status Onset Code Internal derangement of left knee M23.92 Allergies T78.40XA Depression F32.9 Anxiety F41.9 Irregular heartbeat I49.9 GERD (gastroesophageal reflux disease) K21.9 Medical History Medical History Bradycardia athletic History of HPV infection 2016, cleared 2019 Left ACL tear Oral contraceptive use Premature ventricular contractions holter 2019 infrequent, on verapamil- pt. stated not currently taking verapamil Rash and nonspecific skin eruption Possible cold urticaria Surgical History Surgical History History of esophagogastroduodenoscopy (EGD) (~12/2020) History of left knee surgery (04/05/20) Allograph medial meniscus transplant left knee 04/05/2020 Subsequent hardware removal: 04/22/2021 History of surgical removal of meniscus of knee meniscus transplant 04/05/2019 Tobacco Smoking/Tobacco Use Status: Never Passive smoking exposure: Yes Second hand exposure: Yes Alcohol Alcohol Intake: current Alcohol intake frequency: a few times a week Alcohol type: beer and wine Substance Use Substance use: Socially Substance use type: marijuana Details: last smoked marijuana 11/21/21 Prental History History 0 Para Hx # Term Pregnancies Multiple births Hx # Pregnancies Ectopic pregnancies AB induced Hx Number of Living Children AB spontaneous Vital Signs and Lab Results Vital Signs Most Recent Vital Signs in EMR: Most Recent Vital Signs Temp Pulse Resp BP Pulse Ox 36.6 C 45 L 16 137/78 100 11/22/21 07:57 11/22/21 07:57 11/22/21 07:57 11/22/21 07:57 11/22/21 07:57 Lab Results Blood Type / Crossmatch: No Data to Display Complete Blood Count: No Data to Display Complete Metabolic Panel: No Data to Display Liver Function Panel: No Data to Display Coagulation Panel: No Data to Display Cardiac Panel: No Data to Display Arterial Blood Gas: No Data to Display Venous Blood Gas: No Data to Display Pancreas Panel: No Data to Display Thyroid Panel: No Data to Display Infectious Disease: No Data to Display Blood Cultures: No Data to Display Toxicology Panel: No Data to Display Panel: No Data to Display Imaging and Studies Imaging and Studies Study information below may be from another EMR and interpreted by another provider. Please see original notes in EMR for more complete details. EKG Summary: 10/20: Conclusion Sinus rhythm...normal P axis, V-rate 60- 99 Ventricular trigeminy...trigeminy string>6 w/ V complexes Probable left atrial enlargement...P >50mS, <-0.10mV V1 Stress Test Summary: 03/2020: Stress ECG Conclusion 1. The patient exercised for 17 minutes (17 METS). Exercise was stopped due to fatigue. 2. The patient had frequent PVCs at baseline as well as during exercise and through recovery. The PVCs appear monomorphic in nature. 3. There were no ST changes suggestive of ischemia. 4. The Mercedes Score (14) estimates an annual cardiovascular mortality of 0% and a five year survival of 96%. Using the Mercedes Score there is a low probability of any angiographic coronary disease. Mercedes Treadmill Score is 14 which is Low risk. Echocardiogram Summary: 03/22: Conclusion Left Ventricle : The left ventricle is normal size. The left ventricular systolic function is normal. The left ventricular ejection fraction is within the normal range. There is normal left ventricular wall thickness. There is normal LV segmental wall motion. The left ventricular diastolic function is normal. LVEF is 60% with some [id number]-[id number] variability given high number of PVCs. Right Ventricle : The right ventricle is normal size. The right ventricular systolic function is normal. The RVSP is 20.9mmHg. Atria : The left atrium size is normal. The right atrium size is normal. Valves: There are no hemodynamically significant valvular lesions. Great Vessels : The aortic root is normal in size. The ascending aorta is normal in size. Aortic arch is normal in caliber. IVC is normal in size and collapses >50% with inspiration. Anesthesia Assessment and Plan Anesthesia History Personal History: No History of Anesthesia Complications Family History: No Family History of Anesthesia Complications Exercise Tolerance Exercise Tolerance: Metabolic Equivalents>4 Pertinent Negatives Pertinent Negatives: No Major Pulmonary Symptoms or Complaints Cardiac & Pulmonary Exam Cardiac Exam: Normal S1/S2 Heart Sounds Pulmonary Exam: Clear Bilateral Breath Sounds Implantable Cardiac Device Does patient have a Pacemaker or an ICD?: No Airway Exam Known Difficult Airway: No Mallampati Class: 2 Mouth Opening: Normal (> 3cm) Thyromental Distance: Greater than 3 cm Neck Range of Motion: Full ROM Neck Circumference: Normal Teeth Condition: Normal Dentition ASA Classification ASA Score: ASA 2 Emergency Case?: No NPO Status NPO Status: NPO Clears >2 hours, Solids >8 hours Status Status: Negative HCG Anesthesia Plan Resuscitation Status: Full Code Anesthesia Technique: General Anesthesia Airway Planned: LMA Monitors Used: Standard Monitors Preoperative Comments:: LMA with nerve block rescue for breakthrough pain
[2021-11-22] MEDS: Lactated Ringers 1,000 ML 30 ML IV (08:48)
[2021-11-22] MEDS: ceFAZolin 2 GM/50 ML BAG IVPB (10:20)
[2021-11-22] MEDS: Bupivacaine 0.25% Pres-Free W/EPI 30 ML VIAL (10:38)
[2021-11-22] MEDS: MORPHine 4 MG/ML SYR (10:43)
[2021-11-22] MEDS: EPINEPHrine 30 MG/30 ML VIAL (10:44)
--- NOTE | 2021-11-22 11:42 | W.PM.DSUDISC ---
Discharge Plan Disposition Patient Disposition: HOME Condition: Stable Discharge Details Reason For Visit: Left knee surgery Attending Provider: Golden Chilel Primary Care Provider: Dennise Núñez Home Meds and New Rx's Prescriptions: New aspirin 81 mg tablet,delayed release (DR/EC) 81 mg PO DAILY 14 Days Qty: 14 0RF naproxen 250 mg tablet 250 - 500 mg PO BID PRNQty: 40 0RF Rx Instructions: take with a meal oxycodone 5 mg tablet 5 - 10 mg PO Q4H MDD 30 mg PRN (Reason: moderate to severe pain) Qty: 18 0RF Continued omeprazole 20 mg capsule,delayed release(DR/EC) 20 mg PO DAILY PRN (Reason: GERD) Label Comments: has not taken in > 6 months Rx Instructions: Take 1 cap daily on an empty stomach. If heart burn symptoms persist, may increase to 2 caps (40mg) daily bupropion HCl [Wellbutrin XL] 300 mg tablet extended release 24 hr 300 mg PO QAM Qty: 30 0RF valacyclovir 1 gram tablet 2,000 mg PO BID PRN (Reason: cold sore) Qty: 30 0RF Label Comments: only uses as needed, has not needed to use since picking up rx. Rx Instructions: Take at onset of cold sore bupropion HCl 150 mg tablet extended release 24 hr 150 mg PO QAM Qty: 90 3RF Rx Instructions: for a total of 450 mg daily naproxen 250 mg tablet 250 - 500 mg PO BID PRN (Reason: Moderate pain or swelling) Qty: 60 0RF acetaminophen [Tylenol] 325 mg Tablet 650 mg PO ONCE PRN Discharge Instructions Additional Instructions: Surgery: Left knee arthroscopy with partial medial meniscectomy Activity: Weightbearing as tolerated. Advance range of motion as comfort allows. No knee brace or crutches needed as soon as comfortable. Recommend avoiding sports, pivoting, and squatting for about 6-8 weeks. A physical therapy prescription will be provided in the office on follow-up if needed. Prescriptions: Aspirin 81 mg take 1 daily to prevent a blood clot for 14 days Naproxen 250 mg take 1-2 every 12 hours with a meal as needed for moderate pain Oxycodone 5 mg take 1-2 every 4-6 hours as needed for severe pain You may use [id number] Tylenol (acetaminophen) as needed for mild pain. These pain medications may be taken all at once or in different combinations as needed. Also, recommend Colace (docusate) as a stool softener as surgery and pain medicine cause constipation. You may try jlua-zss-zawlspn diphenhydramine (Benadryl) 25-50 mg nightly as a sleep aid Dressings: Leave dressing in place for 3 days. May then remove and leave open to air or cover incisions with Band-Aids. May shower after 5 days. Follow-up: 10-[address] Chilel Let us know right away if you develop any redness, drainage, fevers, chest pain, or trouble breathing. Do not drink alcohol or drive for at least 24 hours after anesthesia. Please call the office during business hours with any questions or concerns. Discharge Orders Discharge Orders: Discharge Order (Routine); Ordered 11/22/21 Ordered By: Golden Chilel
--- NOTE | 2021-11-22 11:47 | W.PM.OP ---
Operative Note Operative Note DATE OF PROCEDURE: 11/22/21 PRE-OP DIAGNOSIS: Left knee 1. Medial meniscus allograft transplant tear POST-OP DIAGNOSIS: same PROCEDURE: Left knee 1. Partial medial meniscectomy, CPT #73761 SURGEON: Golden Chilel EAR NOSE AND THROAT SPECIALIST: None None ANESTHESIA TYPE: Local By Surgeon and General LMA/ETT Refer to Anesthesia Record ESTIMATED BLOOD LOSS: 5 PATHOLOGY: none sent TOURNIQUET TIME: 0 Patient was transported to: PACU Patient's condition: stable Indications: Please see complete medical record for details. Findings: Exam under anesthesia: Full range of motion, no true instability with post-? surgical ACL Marilyn. Mechanical medial posterior medial clunk. Arthroscopic findings: Mild suprapatellar adhesions. Mild central posterior lateral tibial plateau chondromalacia. No loose bodies. Medial meniscus transplant with intact, healed anterior horn and body. High?grade radial tear at the body posterior horn junction. Mobile posterior horn remnant with visible sutures somewhat holding in place. Posterior horn root intact. Moderate generalized cartilage thinning medial femoral condyle and medial tibial plateau. Procedure Description: In the operating room, genral anesthesia was induced. The patient was positioned supine on the operating room table. All bony prominences were well-padded. Preoperative antibiotics were administered. The knee was prepped and draped in the usual sterile fashion. The correct patient, procedure, and side of the procedure were all verified prior to incision. Exam under anesthesia was performed. 10 cc of 0.25% bupivacaine containing epinephrine was infiltrated about the planned anteromedial and anterolateral knee arthroscopy portals. The portals were established and a complete diagnostic arthroscopy was performed with relevant findings detailed above. The mechanical shaver was used to remove a mild amount of suprapatellar adhesions from the patellofemoral compartment and trim free frayed cartilage edges lateral tibial plateau. Attention was turned to the medial compartment. Using a combination of hand instruments including meniscal biters and a power shaver and working through the anteromedial and anterolateral portals the meniscus was debrided of all torn tissue and contoured to a stable margin. Care was taken to preserve as much meniscus tissue was possible. Prominent sutures were cut flush with meniscus and suture material removed. The meniscal remnant was probed and found to have a stable margin, stable root, and no other tears. Under direct arthroscopic visualization an 18-gauge needle was passed into the knee from superolateral into the suprapatellar pouch. The knee was copiously irrigated with arthroscopic fluid until there was a clear effluent before being drained of all fluid. The anteromedial and anterolateral portals were closed in 3-0 Monocryl in a buried interrupted fashion. 20 cc of 0.25% bupivacaine with epinephrine containing 4 mg of morphine was infiltrated into the knee through the previously placed needle. Mastisol, Steri-Strips, and 4 x 4 gauze were applied over the incisions followed by sterile soft roll. The knee was then wrapped gently with an YEISON comressive bandage. The patient awoke from anesthesia without complication and was transferred to the recovery room in a stable condition.
[2021-11-22] MEDS: oxyCODONE 5 MG TAB PO (12:44)
--- NOTE | 2021-11-22 13:09 | W.ANESPOSTOP ---
Postoperative Evaluation Date, Time and Location Date Performed: 11/22/21 Time Performed: 13:09 Patient Location: Day Surgery Unit Vital Signs Most Recent Imported Vital Signs: Most Recent Vital Signs Temp Pulse Resp BP Pulse Ox 36.6 C 55 L 14 112/71 100 11/22/21 13:00 11/22/21 13:00 11/22/21 13:00 11/22/21 13:00 11/22/21 13:00 Pain Score Most Recent Pain Score: Most Recent Pain Score Pain Level 3 11/22/21 13:00 Assessment Mental Status: Awake (Alert & Oriented to Patient Baseline) Airway and Respiratory Function: Patent airway with normal (patient baseline) respiratory exam Cardiovascular Function: Hemodynamically Stable Hydration Status: Adequately Hydrated Nausea & Vomiting: No Nausea or Vomiting Pain: Pain is tolerable per patient Peripheral Nerve Block: Patient did not receive a nerve block
== END 2021-11-22 13:25 | disposition home or self-care (01) ==
PROVIDERS: PCP Nurse Practitioner; Visit Provider Student in an Organized Health Care Education/Training Program
PROC: (CPT 29870; principal; 2021-11-22 09:30)
DX: T85.618A Breakdown (mechanical) of other specified internal prosthetic devices, implants and grafts, initial encounter (principal); G21.9 Secondary parkinsonism, unspecified; F41.9 Anxiety disorder, unspecified; F32.A Depression, unspecified
CPT/HCPCS: 29881; J0690; J1100; J1885; J2250; J2270; J2405; J2704

== ENCOUNTER 2022-01-08 09:50 | Outpatient (REF) | payer MEDICAID, SELFPAY ==
--- NOTE | 2022-01-08 09:30 | PAPFT_PTH ---
PATIENT: Claire Eubanks LOC: [facility] U#:[id number] AGE/SX: 36/F ROOM: RE01/08/[address]: Gudelia Fonseca NP : [id number] BED: DIS: 01/08/2022 SPEC #: [id number] RECD: 01/08/22 18:42 STATUS: CASA REMary #: [id number] DOMONIQUE: 01/08/22 09:[address]: Marian OHARA,Gudelia DEPT: [facility] Cytology RECD BY: Maricel Bell ENTERED: 01/08/22 18:43 SP TYPE: PAPFT OTHR DR: Dennise Núñez, PhD KEYSEATER OPERATOR Tissues: 1 - CX/ENDOCX FOR PAP SMEARS Procedures: PAP THIN PREP/[facility] Screening HPV DNA PROBE Comments: (CHLAMYDIA/GC)
[2022-01-09 14:26] LABS: Chlamydia Result Negative (Negative); GC Result Negative (Negative)
== END 2022-01-08 09:51 | disposition home or self-care (01) ==
LOC: LBN 09:50
PROVIDERS: PCP Nurse Practitioner; Visit Provider Nurse Practitioner Women's Health
DX: Z11.3 Encounter for screening for infections with a predominantly sexual mode of transmission (principal); Z12.4 Encounter for screening for malignant neoplasm of cervix; Z11.51 Encounter for screening for human papillomavirus (HPV); Z87.42 Personal history of other diseases of the female genital tract
CPT/HCPCS: 87491; 87591; 88142; 87624

== ENCOUNTER 2024-02-03 13:28 | Outpatient (REF) | payer MEDICAID, SELFPAY ==
[2024-02-04 13:11] LABS: Chlamydia Result Negative (Negative); GC Result Negative (Negative)
== END 2024-02-03 13:29 | disposition home or self-care (01) ==
LOC: LBN 13:28
PROVIDERS: PCP Nurse Practitioner Family; Visit Provider Nurse Practitioner Women's Health
DX: Z11.3 Encounter for screening for infections with a predominantly sexual mode of transmission (principal); Z12.39 Encounter for other screening for malignant neoplasm of breast; Z01.419 Encounter for gynecological examination (general) (routine) without abnormal findings
CPT/HCPCS: 87491; 87591

== ENCOUNTER 2024-02-23 02:55 | Outpatient (CLI) | payer MEDICAID, SELFPAY ==
--- NOTE | 2024-02-23 12:12 | DI.MAMMO_ITS ---
Exam(s) MAMMO SCREENING EXAM: MAMMO SCREENING CLINICAL HISTORY: screening TECHNIQUE: Mammograms were interpreted according to the usual protocol including computer analysis w [employer] CAD system, tomosynthesis and C-view imaging. COMPARISON: None. Baseline examination. FINDINGS: The breasts are composed of heterogeneously dense fibroglandular densities, Breast Density category C . No suspicious masses or suspicious microcalcifications are seen. No skin thickening or abnormal axillary lymph nodes are seen. IMPRESSION: BI-RADS Category 1, Negative mammogram. Yearly screening mammography is recommended. Breast Density Category C, heterogeneously Dense. The mammogram demonstrates the patient's breast tissue is dense. Dense breast tissue is very common a nd is not abnormal but dense breast tissue can make it harder to find cancer on a mammogram. Also, de nse breast tissue may increase breast cancer risk. This information about the result of the mammogram report was provided to the patient to raise their awareness. Use this report when you speak with the patient about their risks for breast cancer, which includes their family history. At that time, you may recommend additional screening tests (Ultrasound or MRI) as they might be useful based on their r isk. A negative radiographic report should not delay biopsy if a dominant or clinically suspicious mass is present. Up to ten percent of cancers are not identified on mammography. A negative report may reinforce clinical impression. Adenosis and dense breasts may obscure an underlying neoplasm. False positive reports average 6 to 10%.
== END 2024-02-23 03:15 ==
LOC: DI 02:56
PROVIDERS: PCP Nurse Practitioner Family; Visit Provider Nurse Practitioner Women's Health
DX: Z12.31 Encounter for screening mammogram for malignant neoplasm of breast (principal); R92.333 Mammographic heterogeneous density, bilateral breasts
CPT/HCPCS: 77063; 77067

== ENCOUNTER 2024-02-23 14:10 | Outpatient (CLI) | payer MEDICAID, SELFPAY ==
[2024-02-24 08:46] LABS: Hepatitis C Ab w Rflx HCV PCR Negative (Negative)
[2024-02-24 08:56] LABS: HIV-1/2 Ag & Ab Screen Negative (Negative)
[2024-02-26 23:55] LABS: Syphilis IgG w/Reflex Nonreactive (Nonreactive)
== END 2024-02-23 14:11 | disposition home or self-care (01) ==
LOC: LBO 14:12
PROVIDERS: PCP Nurse Practitioner Family; Visit Provider Nurse Practitioner Women's Health
DX: Z11.3 Encounter for screening for infections with a predominantly sexual mode of transmission (principal)
CPT/HCPCS: 36415; 86803; 87389; 86780